=== PATIENT | female | born 1960 | race Caucasian/White ===

== ENCOUNTER 2019-04-06 17:33 | Inpatient (IN) | payer MEDICARE, OTHER ==
[~2019-04-06] VITALS: Ht 160 cm; Wt 74.3 kg
[~2019-04-06 17:33] MED LIST: ACEBUTCAFT PO; ALPR.5 PO; AMOX500 PO; BUDE32NIS; BUPR100ER PO; BUPR150ER PO; BUPR150T2; BUPR150T2 PO; BUSP15 PO; CETI5 PO; CHOLECALCIFEROL; CIME400 PO; CITA20 PO; CLON1; CRUTCH4 USE; CYCL10 PO; DIAZ10 PO; DIAZ5; DIAZ5 PO; DULO60 PO; ESCI20; ESCI20 PO; ESOM20; ESOM20 PO; FLUOXETINE; FLUT44OIA IH; GABA300 PO; HYDACE5 PO; HYDACE7.5 PO; HYDCHL25 PO; LEVSOD25 PO; LOSA50 PO; MEDICAL MARIJUANA; METO10; METO10 PO; METO50ER PO; MOMENI; MULVITMINE; MULVITMINE PO; OLANZAPINE; OMEP20ER; OMEP20ER PO; OMEPRAZOLE MAGN20 MG PO; ONDA4ODT MM; OXYACE5T PO; PANT40 PO; PARO20 PO; PENVK500 PO; POLY17UD PO; POTA10T PO; PRAM.125; PREN-16 PO; PRENATAL PLUS; PROACE100 PO; PROM25 PO; PROM25S PR; QVAR REDIHALE10.6 G1 PO; RANI150 PO; RXHYDACE PO; RXOXYACE PO; RXPROACE PO; RXPROM25 PO; RXPROM25S PR; RXTRAM50 PO; SERT100 PO; SUCR1 PO; SUMA25 PO; TOPI100; TOPI100 PO; TRAZ100; TRAZ100 PO; TRAZ150T57 PO; TRAZ50 PO; VENL75ER; ZIPR40
[2019-04-06] MEDS ORDERED: Loxapine5 MG PO (17:42)
[2019-04-06] MEDS ORDERED: Carisoprodol350 MG PO (18:21)
[2019-04-06 18:43] LABS: BASOPHILS ABSOLUTE AUTO 0.05 K/mm3 (0.00-0.23); BASOPHILS PERCENT AUTO 0 % (0-2); EOSINOPHILS ABSOLUTE AUTO 0.26 K/mm3 (0.00-0.68); EOSINOPHILS PERCENT AUTO 2 % (0-6); Hematocrit 46.9 % (33.0-51.0); IMMATURE GRAN ABSOLUTE AUTO 0.06 K/mm3 (0.00-0.10); IMMATURE GRAN PERCENT AUTO 0 % (0-1); LYMPHOCYTES PERCENT AUTO 39 % (21-46); MONOCYTES ABSOLUTE AUTO 0.77 K/mm3 (0.16-1.47); MONOCYTES PERCENT AUTO 6 % (4-13); Mean Corpuscular HGB 29.1 pg (26.0-34.0); Mean Corpuscular Volume 91 fL (80-100); Mean Platelet Volume 10.4 fL (9.1-12.4); NEUTROPHILS ABSOLUTE AUTO 7.22 K/mm3 (1.96-9.15); NEUTROPHILS PERCENT AUTO 53 % (41-73); Platelet Count 464 K/mm3 (150-400); RDW Coefficient Variation 13.4 % (11.7-14.2); RDW Standard Deviation 45.6 fL (35.1-46.3); Red Blood Cell Count 5.16 M/mm3 (3.80-5.20); White Blood Cell Count 13.76 K/mm3 (4.00-11.30)
[2019-04-06 18:52] LABS: Alanine Aminotransfer (ALT/SGP 26 U/L (12-78); Albumin, Blood 3.6 g/dL (3.4-5.0); Albumin/Globulin Ratio 0.9 (0.8-1.8); Alk Phos 95 U/L (50-136); Anion Gap 8 mmol/L (6-16); Aspartate Aminotrans (AST/SGOT 23 U/L (12-37); Bilirubin, Total 0.4 mg/dL (0.1-1.0); Blood Urea Nitrogen 11 mg/dL (8-24); Bun/Creatinine Ratio 13.5 (12.0-20.0); CO2, Blood 25 mmol/L (21-32); Calcium, Blood 9.1 mg/dL (8.5-10.1); Chloride, Blood 107 mmol/L (98-108); Creatinine, Blood 0.82 mg/dL (0.40-1.00); Ethanol (Alcohol), Blood, Med <3 mg/dL; Globulin, Blood 4.2 g/dL (2.2-4.0); Glomerular Filtration Rate >60 (60-); Glucose, Blood 97 mg/dL (70-99); Potassium, Blood 4.5 mmol/L (3.5-5.5); Sodium, Blood 140 mmol/L (136-145); Total Protein, Blood 7.8 g/dL (6.4-8.2)
[2019-04-06 18:55] LABS: Source, Urine Catheter
[2019-04-06 18:57] LABS: International Normalized Ratio 0.93; Prothrombin Time Results 9.3 Sec (9.7-11.5)
[2019-04-06 18:58] LABS: Bilirubin, Urine Neg (Neg); Blood, Urine Neg (Neg); Glucose Qualitative, Urine Neg (Neg); Ketones, Urine Neg (Neg); Leukocyte Esterase, Urine 1+ (Neg); Nitrite, Urine Pos (Neg); Protein, Urine Neg (Neg); Urobilinogen, Urine NORM (Normal)
[2019-04-06 19:02] LABS: Appearance, Urine Clear (Clear); Color, Urine Yellow (P-Yellow)
[2019-04-06 19:04] LABS: U Amphetamine Screen Not Detected; U Barbituate Screen Not Detected; U Benzodiazapine Screen DETECTED; U Buprenorphine Screen Not Detected; U Cannabinoids Screen DETECTED; U Cocaine Screen Not Detected; U Methadone Screen Not Detected; U Methamphetamine Screen Not Detected; U Opiates Screen DETECTED; U Oxycodone Screen Not Detected; U Phencyclidine Screen Not Detected; U Propoxyphene Screen Not Detected
[2019-04-06 19:05] LABS: Bacteria Many /hpf; Red Blood Cells, Urine 0-2 /hpf (0-2); Squamous Epithelial Cells Few /hpf (Few)
[2019-04-06 21:13] LABS: PCO2 Arterial 44.1 mmHg (35-45); pH Blood Arterial 7.39 (7.35-7.45)
--- NOTE | 2019-04-06 21:21 | NUR ---
ASSUMING CARE OF PT. PT REPORT RECEIVED VIA TELEPHONE WITH OFFGOING ED NURSE, JOHNNY MOORE. WAITING FOR PT TRANSFER FROM ED TO ICU AT THIS TIME.
--- NOTE | 2019-04-06 21:39 | NUR ---
TERESA TURNER CALLED ICU AT THIS TIME. JOHNNY PROVIDED PT UPDATE. PER JOHNNY, POISON CONTROL RECOMMENDED CONT TELE MONITORING, SEIZURE PRECAUTIONS, AND SEROTONIN SYNDROME. TERESA TURNER PLANNING TO TRANSFER PT TO CT FOR HEAD CT PRIOR TO TRANSFERRING PT TO ICU. APPLYING SEIZURE PLANS TO BED AT THIS TIME FOR SEIZURE PRECAUTIONS. WAITING FOR PT TRANSFER TO ICU AT THIS TIME.
--- NOTE | 2019-04-06 21:50 | NUR ---
PT TRANSFERRED FROM ED TO ICU AT THIS TIME.
--- NOTE | 2019-04-06 22:00 | NUR ---
ASSESSMENT / DR. CARD PT RESPONDS TO PAINFUL STIMULI (FACIAL GRIMACING TO PAIN), NORMAL FLEXION TO PAIN, NO SOUNDS/MOANING, NO GAG WITH SUCTIONING, NO COUGHING, NO NODDING HEAD Y/N TO QUESTIONS, NOT FOLLOWING COMMANDS, NO OPENING OF EYES. ROMAZICON ADMINISTERED PER PHYSICIAN'S ORDER. PT CONT TO RESPOND TO PAINFUL STIMULI (FACIAL GRIMACINTG TO PAIN), NORMAL FLEXION TO PAIN, NO SOUNDS/MOANING, NO GAG WITH SUCTIONINOG, NO COUGHING, NO NODDING HEAD Y/N TO QUESTIONS, NOT FOLLOW COMMANDS. HOWEVER, PT OPENED EYES SPONT AND TREMORS NOTED. RICKY SENSATION. PT SAWYER. MINIMAL MOVEMENT NOTED. GENEARLIZED WEAKNESS. SLUGGISH PUPIL RESPONSES. PUPIL 7 MM. NO S/SX OF PAIN/DISCOMFORT NOTED. LUNGS COARSE, LOWER LOBES DIMINIHSED. SHALLOW BREATHING. BIPAP 12/5, FIO2 30%. RR 20'S.OXY SAT >90%. NASAL TRUMPET R NARE. NO COUGHING NOTED. AFEBRILE. ST. HR 110'S. BP STABLE - SEE VS FS. STRONG PULSES. WARM, PINK SKIN. NO EDEMA NOTED. INCREASED RR, HR, AND BP NOTED AFTER ADMINISTERING ROMAZICON. ACTIVE BT X4 QUADRANTS. ABD SOFT, NO FACIAL GRIMACING WITH PALPATION, MILD DIST. NO BM. FLATUS. NPO D/T DECREASED LOC. F/C: CLEAR, YELLOW URINE. PIV X2. NS AT 75 ML/HR. DR. CARD AT BEDSIDE AT THIS TIME. DR. CARD ORDERED ROXI CONSULT, SEIZURE PREACUATIONS, AND HYDRALAZINE PRN FOR SBP 180 AND GREATER. FACESHEET SENT TO ED FOR DR. DIANE'S CONSULT. SEIZURE PADS IN PLACE. DR. CARD AWARE THAT TERESA TURNER NOTIFIED POISON CONTROL OF OD. PT'S HX OBTAINED FROM SIGNIFICANT OTHER OF 13 YEARS (WILL). WILL UNABLE TO PROVIDE PT INFORMATION ABOUT HOME MEDICATION LIST AND ALLERGY LIST.
--- NOTE | 2019-04-06 23:50 | NUR ---
INTUBATION / DR. CARD / PT CARE PT UNRESPONSIVE, DOES NOT RESPOND TO PAINFUL STIMULI, NO SOUNDS/MOANING, NO GAG WITH SUCTIONIONG, NO COUGHING, NO OPENING EYES. NASAL TRUMPET TO R NARES REMAINS IN PLACE. BIPAP REMAINS ON. BIPAP SETTINGS 12/5, FIO2 50%. INCREASED FIO2 TO MAINTAIN SPO2 90% AND GREATER. RT ROLAN NOTIFIED OF INCREASING FIO2 REQUIREMENTS AT 2203. RT ROLAN AT BEDSIDE TO DEEP SUCTION PT AT 2206. RT ROLAN INCREASED FIO2 TO 100%. DR. CARD CALLED AT 2209. UPDATED DR. CARD OF PT'S STATUS. DR. CARD INSTRUCTED TO PREP FOR INTUBATION. DR. CARD, ROLAN RT, MONSERRAT RT, COURTNEY RN, GAURAV RN, AND MONSERRAT RN AT BEDSIDE FOR INTUBATION. PT INTUBATED AT 2323 WITH 7.5 ETT. ETOMIDATE 10 MG ADMINSITERED AT 2323. ETT PULLED OUT AT 2324 D/T ETT IN STOMACH. SUCCINYLCHOLINE 200 MG ADMINISTERED AT 2330. VERSED 2 MG ADMINISTERED AT 2332. PT INTUABTED AT 2334 WITH 7.0 ETT, 24 LIP. VENT SETTINGS: AC 16, TV 400, PEEP 5, FIO2 100%. CLARIFYING PLANT OPERATOR AT BEDSIDE. OG INSERTED BY MONSERRAT, RN AT 2335. CHEST XRAY COMPLETED AT 2337. DR. CARD ORDERED VAP PROTOCOL, PROPOFOL (WILL TITRATE PROPOFOL DRIP TO EFFECT), PROTONIX SCHEDULED, AND CONSULT FOR DR. MCKINLEY. PROPOFOL REMAINS ON STANDBY D/T PT REMAINS UNRESPONSIVE. CALLED DR. CARD AT 2343 TO VERIFY PLACEMENT OF ETT. DR. CARD CALLED ICU BACK AT 2346 AND INSTRUCTED TO PULL ETT TO 22 LIP. MONSERRAT RT AND ROLAN RT PULED ETT TO 22 LIP. PT IN BILAT WRIST RESTRAINTS TO PROTECT VITAL LINES/CORDS/TUBES AND TO PROTECT FROM SELF-EXTUBATION.
--- NOTE | 2019-04-07 02:10 | NUR ---
POISON CONTROL POISON CONTROL CALLED AT THIS TIME. UPDATED POISON CONTROL REGARDING PT'S STATUS AND LABS. POISON CONTROL RECOMMNEDED AM SALICYLATES, TYLENOL, MAG, PHOS, AND EKG. AM LABS AND EKG ORDERED. NO ADDITIONAL RECOMMENDATIONS AT THIS TIME.
[2019-04-07] MEDS ORDERED: Loxapine50 MG PO (02:42)
[2019-04-07] MEDS ORDERED: ONDA8 PO (02:45)
[2019-04-07] MEDS ORDERED: BUSP15 PO (02:47)
[2019-04-07] MEDS ORDERED: Loxapine5 MG PO (02:51)
[2019-04-07] MEDS ORDERED: Budeprion Xl300 MG PO (02:54)
[2019-04-07] MEDS ORDERED: IBUP800 PO (02:56)
[2019-04-07 03:42] LABS: Hematocrit 44.9 % (33.0-51.0); Hemoglobin 14.6 g/dL (11.5-16.0); Mean Corpuscular HGB 29.4 pg (26.0-34.0); Mean Corpuscular HGB Conc 32.5 g/dL (31.5-36.5); Mean Corpuscular Volume 91 fL (80-100); Mean Platelet Volume 9.9 fL (9.1-12.4); Platelet Count 412 K/mm3 (150-400); RDW Coefficient Variation 13.7 % (11.7-14.2); RDW Standard Deviation 46.1 fL (35.1-46.3); Red Blood Cell Count 4.96 M/mm3 (3.80-5.20); White Blood Cell Count 19.07 K/mm3 (4.00-11.30)
[2019-04-07 04:00] LABS: Alanine Aminotransfer (ALT/SGP 21 U/L (12-78); Albumin, Blood 3.4 g/dL (3.4-5.0); Albumin/Globulin Ratio 0.9 (0.8-1.8); Alk Phos 89 U/L (50-136); Anion Gap 8 mmol/L (6-16); Aspartate Aminotrans (AST/SGOT 14 U/L (12-37); Bilirubin, Total 0.2 mg/dL (0.1-1.0); Blood Urea Nitrogen 9 mg/dL (8-24); Bun/Creatinine Ratio 12.6 (12.0-20.0); CO2, Blood 25 mmol/L (21-32); Calcium, Blood 8.8 mg/dL (8.5-10.1); Chloride, Blood 109 mmol/L (98-108); Creatinine, Blood 0.72 mg/dL (0.40-1.00); Globulin, Blood 3.8 g/dL (2.2-4.0); Glomerular Filtration Rate >60 (60-); Glucose, Blood 133 mg/dL (70-99); Phosphorus, Blood 3.5 mg/dL (2.5-4.9); Potassium, Blood 3.6 mmol/L (3.5-5.5); Salicylate <1.7 mg/dL (2.8-20.0); Sodium, Blood 142 mmol/L (136-145); Total Protein, Blood 7.2 g/dL (6.4-8.2)
[2019-04-07 04:06] LABS: Acetaminophen, Random <2.0 ug/mL (10.0-30.0)
--- NOTE | 2019-04-07 04:15 | NUR ---
POISON CONTROL CALLED POISON CONTROL AT THIS TIME. INFORMED POISON CONTROL OF AM LABS AND EKG. POISON CONTROL RECOMMENDED TO ADMINISTER MAGNESIUM AND POTASSIUM. FURTHERMORE, POISON CONTROL RECOMMENDED TO REPEAT CHEMISTRY TODAY. PLANNING TO CALL DR. CARD TO INFORM ABOUT POISON CONTROL'S RECOMMENDATIONS.
--- NOTE | 2019-04-07 04:40 | NUR ---
DR. CARD CALLED DR. CARD AT 0420. DR. CARD CALLED BACK AT THIS TIME. UPDATED DR. AU OF PT'S STATUS, AM LABS, AND POISON CONTROL'S RECOMMENDATIONS. DR. CARD ORDERED KCL 40 MEQ, MAG SULFATE 1 G, AND REPEAT RENAL AND MAG LABS ONCE KCL AND MAG SULFATE HAVE BEEN ADMINISTERED.
--- NOTE | 2019-04-07 05:27 | NUR ---
SHIFT ASSESSMENT NO ACUTE CHANGES NOTED T/O SHIFT. PT RESPONDING TO VERBAL AND PAINFUL STIMULI ESPECIALLY WITH DECREASED SEDATION, GAGGING D/T ETT, OCC COUGHING, OPENS EYES TO SOUND AND PRESSURE, OPENED EYES SPONT WITH DECREASED SEDATION, NOT FOLLOWING COMMANDS, NOT NODDING HEAD Y/N TO QUESTIONS. INCREASED LOC NOTED T/O SHIFT. PROPOFOL AT 30 MCG/KG/MIN - CONT TO TITRATE TO EFFECT. NO TREMORS. RICKY SENSATION. PT SAWYER. INCREASED MOVEMENT NOTED T/O SHIFT. GENEARLIZE WEAKNESS. PT OCC PULLING ON BILAT WRIST REATRSINTS TOWWARDS ETT. PT REMAINS IN BILAT WRIST RESTRAINTS TO PROTECT VITAL LINES/CORDS/TUBES. SLUGGISH PUPIL RESPONSES. SLOWLY TRACKING WITH EYES. NO S/SX OF PAIN/DISCOMFORT NOTED. SEIZURE PANS IN PLACE. LUNGS COARSE, LOWER LOBES DIMINISHED. SHALLOW BREATHING. VENT SETTINGS: AC 16, TV 400, PEEP 5, FIO2 30%. RR 12 TO 20 T/O SHIFT. CONT TO TITRATE FIO2 TO MAINTAIN SPO2 90% AND GREATER. PT DESAT WITH TURNS. NASAL TRUMPET REMOVED DURING INTUBATION. OCC PRODUCTIVE COUGH. SX VIA ETT: SMALL TO MOD AMOUNTS OF THICK BLOODY SECRETIONS. SPUTUM SAMPLE SENT. AFEBRILE. ST. HR 100'S TO 110'S. BP STABLE AT THIS TIME. STRONG PULSES. WARM, PINK, DIAPHORETIC SKIN. NO EDEMA. ACTIVE BT X4 QUADRANTS. ABD SOFT, NO FACIAL GRIMACING WITH PALPATION, MILD DIST. NO BM. FLATUS. OG TUBE: SMALL AMOUNTS OF THICK BROWN SECRETIONS. F/C: CLEAR, YELLOW URINE. PIV X2. NS AT 75 ML/HR. PT'S SIGNIFICANT OTHER REMAINS AT BEDSIDE. WILL CONT TO MONITOR PT AND WILL PROVIDE BEDSIDE REPORT TO ONCOMING NURSE THIS AM.
--- NOTE | 2019-04-07 08:00 | NUR ---
ASSUMED CARE: REPORT RECEIVED FROM COURTNEY Sanz RN. ASSUMED CARE OF THIS PT AT APPROX 0700. ON ASSESSMENT, THE PT IS SEDATED/INTUBATED. VENT SETTINGS: AC 16, TV 400, PEEP 5 & FIO2 30%. PROPOFOL TITRATION DOC IN FLOWSHEET FOR SEDATION. PT EYES OPEN TO VERBAL STIMULUS & FOLLOWING SIMPLE COMMANDS. LS ARE COARSE T/O, SUCTIONING LARGE AMNTS OF THICK BROWN SPUTUM FROM ETT. MONITOR SHOWS ST, HR 110s, BP STABLE. BT x4 HYPOACTIVE, OGT TO LIS. [place] PATENT/DRAINING CLEAR YELLOW URINE. SKIN OVERALL CDI. Q2H TURNS. WILL CONTINUE TO MONITOR & UPDATE NEEDED.
--- NOTE | 2019-04-07 08:15 | NUR ---
DR. MCKINLEY: PROVIDER AT BEDSIDE TO SEE PT. ORDERS FOR NEW CXR HAVE BEEN PLACED. PLAN IS FOR POSSIBLE EXTUBATION THIS AFTERNOON PT's MENTATION CLEARS MORE. WILL PERFORM SEDATION VACATION PER PROVIDER REQUEST AT APPROX 1400 TO DETERMINE IF PT IS SUITABLE FOR EXTUBATION.
[2019-04-07 12:15] LABS: Albumin, Blood 3.2 g/dL (3.4-5.0); Anion Gap 5 mmol/L (6-16); Blood Urea Nitrogen 7 mg/dL (8-24); Bun/Creatinine Ratio 10.9 (12.0-20.0); CO2, Blood 26 mmol/L (21-32); Calcium, Blood 8.7 mg/dL (8.5-10.1); Chloride, Blood 110 mmol/L (98-108); Creatinine, Blood 0.65 mg/dL (0.40-1.00); Glomerular Filtration Rate >60 (60-); Glucose, Blood 119 mg/dL (70-99); Magnesium, Blood 2.3 mg/dL (1.6-2.4); Phosphorus, Blood 2.7 mg/dL (2.5-4.9); Sodium, Blood 141 mmol/L (136-145)
--- NOTE | 2019-04-07 15:18 | NUR ---
SEDATION VACATION / SBT / CUFF LEAK TEST: PER DR. MCKINLEY, SEDATION VACATION & SPONTANEOUS BREATHING TRIAL TO BE PERFORMED THIS AFTERNOON. SEDATION TITRATION BEGAN AT 1400, SEE FLOWSHEET. PT AWAKE & FOLLOWING COMMANDS W/O DIFFICULTY. SEDATION PLACED ON STANDBY AT APPROX 1420. VENT SETTINGS CHANGED TO SPONTANEOUS W/ PS 5/5 AT 1425. PT TOLERATING THIS WELL W/ RR 16-24 & TV > 400. CUFF LEAK TEST PERFORMED AT 1445, THERE IS NO AUDIBLE GURGLING W/ CUFF COMPLETELY DEFLATED. DR MCKINLEY AT BEDSIDE TO LISTEN. CUFF IS REINFLATED & IT IS DECIDED THAT THE PT IS TO REMAIN INTUBATED. SEDATION RESUMED AT 1445, FENTANYL ORDERED FOR PAIN PRN. DECADRON ORDERED FOR AIRWAY INFLAMMATION. FAMILY & PT HAVE BEEN EDUCATED ON THIS INFORMATION. WILL CONTINUE TO MONITOR & UPDATE NEEDED.
--- NOTE | 2019-04-07 18:39 | NUR ---
SHIFT SUMMARY: NO ACUTE CHANGES SINCE PRIOR UPDATES. PT REMAINS SEDATED/INTUBATED. VENT SETTINGS AC 16, TV 400, PEEP 5 & FIO2 30%. DESATS NOTED TO MID 80s WHEN PT COUGHING/NEEDS SUCTIONED. LS ARE IMPROVED SINCE THIS AM, MORE CLEAR T/O, DIM IN BASES. SMALL AMNT OF THICK BROWN SPUTUM CONTINUES TO BE SUCTIONED THROUGH ETT. MONITOR SHOWS ST, HR TRENDING DOWN OVERALL, NOW 100s. BP STABLE. BT HYPOACTIVE x4, ABD SOFT, NO GRIMACE TO PALPATION. OGT CONTINUES TO LIS, 75 ML OUTPUT THIS SHIFT. [place] PATENT/DRAINING DARK YELLOW URINE. PT IS MORE DIAPHORETIC THIS EVENING, VSS & SHE CONTINUES TO AWAKEN EASILY TO VERBAL STIMULI. AFEBRILE, TEMP IN ROOM HAS BEEN LOWERED FOR COMFORT. WILL CONTINUE TO MONITOR & REPORT OFF TO ONCOMING RN.
--- NOTE | 2019-04-07 19:15 | NUR ---
ASSUMED CARE OF PT, BEDSIDE REPORT RECEIVED. PT IS SEDATED AND INTUBATED AT THIS TIME, PROPOFOL GTT CHECKED, NOTED AT 60 MCG/MG/MIN. PT IS NOTED TO OPEN EYES TO VERBAL STIMULI, MAKES EYE CONTACT, ANSWERS YES/NO QUESTIONS, SIGNIFICANT OTHER, WILL, AT BEDSIDE, PT IS NOTED WITH GENERALIZED DIAPHORESES, BEADS OF SWEAT ON FACE/FOREHEAD, SIGNIFICANT OTHER STATES "SHE ALWAYS SWEATS." ETT 7.0 NOTED AT 22 CM AT LIP, 21 CM AT TEETH, VENT AC 16, TV 400, PEEP 5.0, FIO2 30%, LUNG CLEAR BILAT UPPER, CLEAR/DIM MID TO BASES BILAT, PT IS MAINTAINING SATS AT 95% AT THIS TIME, RESP RATE 16, MOST BREATHS ARE NOTED "CONTROLLED" WHEN PT IS UNDISTURBED, THICK BROWN SPUTUM IS NOTED IN ET SUCTION TUBING. HRR, SINUS TACH ON MONITOR RATE BETWEEN 100 AND 110, PULSES FULL X 4 EXTREMITIES, PRESSURE MAINTAINING, SKIN PINK, WARM, DRY. OG NOTED TO LIS, SECRETIONS CLEAR BROWN, HYPOACTIVE BOWEL TONES ARE NOTED, ABD SOFT, NO GRIMACING/GUARDING IS NOTED WITH PALPATION. [place] CATH REMAINS IN PLACE DRAINING CLEAR DARK YELLOW URINE TO GRAVITY, 60 ML IN UROMETER AT THIS TIME, WILL MONITOR.
--- NOTE | 2019-04-08 06:27 | NUR ---
PT RESTS QUIETLY THROUGHOUT SHIFT, LUNG SOUNDS INTERMITTENTLY COARSE THROUGHOUT, SPUTUM PRODUCTION CONTINUES MODERATE AMOUNTS OF THICK, PALE GREEN SPUTUM WITH ET SUCTIONING, PT IS NOTED TO HAVE SATS DECREASING TO MID TO UPPER 80S AT TIMES THAT SUCTIONING IS REQUIRED HOWEVER PEAK PRESSURES REMAIN LOW TO MID 20S, SUCTIONING ATTEMPTS ARE PRODUCTIVE AT THESE TIMES AND PT'S SATS DO IMPROVE BACK TO LOW TO MID 90S WITHOUT OTHER VENT CHANGES. AFTER SPONTANEOUS BREATHING TRIAL THIS AM, SHE IS NOTED TO HAVE DECREASING SATS TO LOW 80S AND SUCTIONING IS PRODUCTIVE OF THICK SPUTUM, PER RT PT HAD LARGE AMOUNT OF SPUTUM PRODUCTION WHEN SHE WAS AWAKE AND ABLE TO ASSIST WITH COUGH, RT RETURNED TO BEDSIDE, PT SUCTIONED AND FIO2 INCREASED TO 60%. HR IMPROVED TO 90S, PRESSURE MAINTAINING. OG REMAINS IN PLACE TO LIS, SCANT DRAINAGE THIS SHIFT. [place] REMAINS IN PLACE JUST OVER 300 ML OUTPUT THIS SHIFT, PT DIAPHORESIS IMPROVED AFTER BEDBATH AT HS, 2 KG WEIGHT LOSS IS NOTED.
--- NOTE | 2019-04-08 07:48 | NUR ---
ASSUMED CARE: REPORT RECEIVED FROM YANET Kirk RN. ASSUMED CARE OF THIS PT AT APPROX 0700. ON ASSESSMENT, THE PT APPEARS COMFORTABLE. SHE IS SHOWING NO S/SX PAIN OR DISCOMFORT AT THIS TIME. REMAINS SEDATED/INTUBATED. VENT SETTINGS: AC 16, TV 400, PEEP 5 & FIO2 50%. MOD AMNTS OF THICK YELLOW/HERZOG SPUTUM CONTINUE BEING SUCTIONED FROM ETT. LS ARE CLEAR, DIM IN BASES. MONITOR SHOWS SR W/ HR 80s. BP STABLE. OGT TO LIS, MINIMAL OUTPUT LAST SHIFT. [place] DRAINING DARK YELLOW, CONCENTRATED URINE THAT HAS A STRONG ODOR. WILL CONTINUE TO MONITOR & UPDATE NEEDED.
--- NOTE | 2019-04-08 07:55 | NUR ---
DR. GALO: PROVIDER HAS ROUNDED, NO NEW ORDERS/CHANGES AT THIS TIME.
--- NOTE | 2019-04-08 09:22 | NUR ---
DR. MCKINLEY: PROVIDER ROUNDING, STS HE WOULD LIKE SEDATION TITRATED OFF W/ ANTICIPATION OF EXTUBATION THIS AM. SEE FLOWSHEET FOR TITRATION. TOMY D, RT, NOTIFIED.
--- NOTE | 2019-04-08 10:15 | NUR ---
SEDATION VACATION / EXTUBATION: SEDATION VACATION BEGAN AT APPROX 0920 W/ PLANS TO EXTUBATE. PT ALERT, ANSWERING YES/NO QUESTIONS APPROPRIATELY W/ HEAD NODS. SHE IS FAIRLY ANXIOUS BUT RESPONDS WELL TO REASSURANCE & REDIRECTION. PER DR MCKINLEY, SBT IS NOT NECESSARY PT IS FULLY AWAKE & PASSED SBT W/O DIFFICULTY THIS AM. CUFF LEAK TEST PERFORMED & PT NOW HAS A CUFF LEAK. EXTUBATION AT 0945, PT PLACED ON 3L NC & IS TOLERATING WELL W/ O2 SATS > 92%. SHE HAS A STRONG COUGH & IS EXPECTORATING SPUTUM W/O DIFFICULTY. WILL CONTINUE TO MONITOR & UDPATE NEEDED.
--- NOTE | 2019-04-08 11:12 | NUR ---
STARTED PT WITH ICE CHIPS AND THEN GRADUALLY WITH SIPS OF WATER. TOLERATED ICE CHIPS AND SIPS OF WATER WELL.
--- NOTE | 2019-04-08 12:29 | NUR ---
THIS NURSE DID THE SUICIDE SEVERITY ASSESSMENT. PT TRIED TO ANSWER QUESTIONS BUT SIGNIFICANT OTHER KEEPS ON ANSWERING THE QUESTIONS FOR HER THAT THIS NURSE HAD ASKED HIM TO LET PT ANSWER THE QUESTIONS. HE HAS STATED PT HAD TAKEN THE MEDICATIONS BECAUSE HIM AND THE PATIENT HAD AN "ARGUMENT" AND TOLD PT THAT "IF YOU WANT ME TO LEAVE, I WILL LEAVE."
--- NOTE | 2019-04-08 16:41 | NUR ---
Per admit trigger, I met with Madhavi to offer information regarding Advanced Directives. I met with both Madhavi and her SO, Steven. Steven tells me he has advanced cancer, and he feels guilty because of the stress this has caused Madhavi. Steven states that "its not going well" with his cancer sotomayor. Madhavi was frequently tearful. I provided gentle career and guidance counselor and offered prayer to Madhavi. She would like Steven to be her MPOA. Steven would like Madhavi to be his MPOA. AD forms completed. I will remain available.
--- NOTE | 2019-04-08 19:05 | NUR ---
SHIFT SUMMARY: NO ACUTE CHANGES SINCE PRIOR UPDATES. PT REMAINS CONFUSED INTERMITTENTLY & IS HAVING SOME HALLUCINATIONS WELL. SHE IS EASILY REDIRECTABLE & RESPONDS TO REASSURANCE WELL. LS REMAINS CLEAR, DIM IN BASES. PT ON RA W/ O2 SATS > 92%. SHE HAS A STRONG COUGH & IS EXPECTORATING SPUTUM W/O DIFFICULTY. MONITOR SHOWS NSR W/ HR 80-100s. HTN IMPROVED SINCE MEDS PER EMAR. PT IS EATING W/O DIFFICULTY & HAS NO C/O NAUSEA OR DISCOMFORT. [place] REMAINS IN PLACE W/ PLANS TO BE REMOVED JORI. WILL CONTINUE TO MONITOR & REPORT OFF TO ONCOMING RN.
--- NOTE | 2019-04-08 19:15 | NUR ---
ASSUMED CARE OF PT, BEDSIDE REPORT RECEIVED. CIVIL RIGHTS BEING READ TO PT BY DAY SHIFT FEATHER SHAPER. PT BECOMES TEARFUL RIGHTS ARE READ, EXPLAINED THAT CIVIL RIGHTS ARE PART OF ADMISSION FOR 2 MD HOLD. EXPLAINED REASON FOR 2 MD HOLD AT THIS TIME. DISCUSSED BOUNDARIES ASSOCIATED WITH 2 MD HOLD. EXPLAINED ALL PERSONAL BELONGINGS ARE TO REMAIN OUTSIDE OF ROOM, EXPLAINED PHONE REMOVAL FROM ROOM WELL EQUIPMENT REMOVAL FOR SAFETY. DISCUSSED MONITORING VIA IN ROOM CAMERA. PT REMAINS TEARFUL BUT VERBALIZES UNDERSTANDING THAT ALL PRECAUTIONS ARE FOR HER SAFETY. SHE STATES THAT SHE WAS NOT TRYING TO HURT HERSELF, SHE STATES THAT SHE WAS NOT TRYING TO KILL HERSELF. "I JUST TOOK MY BEDTIME MEDS 2 OR 3 TIMES BECAUSE I KEPT FORGETTING IF I HAD TAKEN THEM" STATES THAT SHE NOTIFIED SIG OTHER " SOON I REALIZED WHAT I DID" SHE IS ALERT AND ORIENTED X 3 AT THIS TIME. LUNGS ARE INITIALLY COARSE THROUGHOUT HOWEVER PT HAS STRONG PRODUCTIVE COUGH DURING AUSCULTATION AND LUNG SOUNDS BECOME CLEAR THROUGHOUT, SPUTUM IS THICK AND PALE GREEN, SATS ARE MAINTAINING HIGH 90S ON ROOM AIR, NO INCREASED WORK OF BREATHING IS NOTED, PT DENIES SOB/DYSPNEA, STATES THAT SHE HAS NOTICED FEELING THAT SHE HAS A WHEEZE ON OCCASION. HRR, SINUS ON MONITOR, RATE 80-90S, HAS BEEN HYPERTENSIVE TODAY WILL MONITOR. ABD SOFT, NORMOACTIVE BOWEL TONES, NO GRIMACING OR GUARDING. [place] CATH REMAINS IN PLACE, URINE OUTPUT IMPROVED WILL MONITOR.
--- NOTE | 2019-04-08 19:47 | NUR ---
1939-EXPLAINED TO PT THAT SHE WAS PLACED BY DR. MCKINLEY ON A 2 MD HOLD. WHILE TRYING TO EXPLAIN TO PATIENT WHAT 2 MD HOLD IS, PT'S SIGNIFICANT OTHER, WHO CLAIMED TO BE PT'S , KEEP INTERRUPTING THIS NURSE WHILE EXPLAINING TO THE PATIENT. HE KEEPS ON SAYING THAT " I WILL CALL MY APPLICATION ASSISTANT TOMORROW." THIS NURSE EXPLAINED TO HIM THAT THE PATIENT HAS RIGHTS FOR AN ELEMENTARY SCHOOL REGISTRAR. SIGNIFICANT OTHER CONTINUED TO BE ARGUMENTATIVE. EXPLAINED TO HIM TO ALLOW THIS NURSE TO CONTINUE TO EXPLAIN TO PT AND READ TO PT'S HER CIVIL RIGHTS. EXPLAINED TO PT THAT HAVING A VISITOR IN THE ROOM IS A PRIVILEGE. THIS MADE THE SIGNIFICANT OTHER UPSET MORE. STATED THAT THIS NURSE WAS "STRESSING PATIENT AND INTERRUPTING HER WHILE SHE'S EATING" AND THAT HE SAW THIS NURSE OUTSIDE OF PT'S ROOM "WAVING PAPER TO PEOPLE AND TELLING THEM WHAT TO DO." THIS NURSE TALKED TO PATIENT AND WAS ABLE TO MAKE PT CALM. THE SIGNIFICANT OTHER WAS INFORMED THAT IF HE INTERFERES WITH THE CARE OF THE PATIENT THAT HE WILL BE ASKED TO STEP OUT AND WILL BE ASSISTED WITH SECURITY IF NOT COOPERATING. INFORMED YANDEL SMITH RN & CARLOS WITH SECURITY REGARDING THIS CONVERSATION.
--- NOTE | 2019-04-09 06:32 | NUR ---
PT RESTS QUIETLY THROUGHOUT SHIFT, CONTINUES TO DENY THAT SHE HAD INTENT TO HARM OR KILL HERSELF AND THAT OVERDOSE WAS ACCIDENTAL. SHE CONTINUES TO FREQUENTLY BE TEARFUL AND EXPRESSES CONCERN REGARDING SIGNIFICANT OTHER'S WELL BEING. SATS REMAIN GREATER THAN 95% THROUGHOUT SHIFT ON ROOM AIR, NO INCREASED WORK OF BREATHING HAS BEEN NOTED THIS SHIFT, PT HAS DENIED DYSPNEA THROUGHOUT NOC, LUNGS OCCASIONALLY COARSE HOWEVER CONTINUE TO CLEAR WITH COUGH. HRR, CONTINUES IN SINUS RHYTHM, BP MAINTAINING. ABD REMAINS SOFT NONTENDER TO PALP, ACTIVE BOWEL TONES X4, CONTINUES TO DENY N/V. [place] DC'D, SHE WAS ABLE TO VOID X 1 AND DENIED ANY BURNING, URGENCY, OR DIFFICULTY WITH VOID. WAS UP TO TOILET X 1 WITH STEADY GAIT, DENIED DIZZINESS/VERTIGO WITH TRANSFER, DID STATE THAT SHE FELT A LITTLE "SHAKY" OTHERWISE TOLERTATED WELL.
--- NOTE | 2019-04-09 09:44 | NUR ---
PT AWAKE IN BED, S/O AT BEDSIDE. PT AWAKE, COOPERATIVE AND PLEASANT, ALONG WITH S/O. PT DENIES COMPLAINTS, DENIES S.I., STATES SHE ACCIDENTLY TOOK HOME MEDS SEBVERAL TIMES, STATES SHE SLEEP WALKS. MULTIPLE SCATTERED BRUISES, BOTH COUPLES STATE THAT SHE FALLS A LOT, POSSIBLE D/T MEDS. BOTH PT AND S/O APPEAR TO HAVE AN INTELLECTUAL DISABILITY; SOFT SPOKEN; S/O SUPPORTIVE. DANICA WALL MHNP IN TO SEE PT THIS AM AND RECOMMENDS DROPPING HOLD; DR GALO NOTIFIED. PT OOB TO CHAIR, EATING, DRINKING, TOLERATED WELL.
[2019-04-09] MEDS ORDERED: LEVFLO500 PO (10:55)
--- NOTE | 2019-04-09 11:37 | NUR ---
WRITTEN AND VERBAL INSTRUCTIONS GIVEN WITH CLEAR UNDERSTANDING TO BOTH PT AND PT'S S/O. FOLLOW UP APPOINTMENT MADE W PCP. RX CALLED INTO [facility]. PT WALKED OUT BY S/O IN STABLE CONDITION. DROP ORDER SIGNED BY DR GALO, ORIGINAL SENT TO [facility].
== END 2019-04-09 11:37 | disposition home or self-care (01) | DRG 917 ==
LOC: ER 17:33 → ICUE 17:34 → ER 17:34 → ICUW 17:34 → ICUE 21:33 → ICUW 21:50 → ICUE 21:50 → ICUW 04-07 10:17 → ICUE 04-07 10:17
PROVIDERS: Emergency Medicine; ADMIT Internal Medicine
PROC: 0BH17EZ Insertion of Endotracheal Airway into Trachea, Via Natural or Artificial Opening (ICD-10-PCS; principal; 2019-04-07)
PROC: 5A1945Z Respiratory Ventilation, 24-96 Consecutive Hours (ICD-10-PCS; 2019-04-07)
DX: T65.91XA Toxic effect of unspecified substance, accidental (unintentional), initial encounter (principal); G92 Toxic encephalopathy; N39.0 Urinary tract infection, site not specified; T50.902A Poisoning by unspecified drugs, medicaments and biological substances, intentional self-harm, initial encounter; Y92.9 Unspecified place or not applicable; F31.9 Bipolar disorder, unspecified
CPT/HCPCS: 31500; 31720; 36415; 36600; 51702; 70450; 71045; 80053; 80069; 81001; 82803; 82947; 83735; 84100; 85025; 85027; 85610; 87070; 87077; 87086; 87185; 87186; 87205; 93005; 93010; 94002; 94003; 94660; 96365; 96366; 96372; 96374-59; 96375; 96375-59; 99285-25; C9113; G0378; G0480; J0330; J0360; J1100; J1650; J1956; J2250; J2310; J2704; J3010; J3475; J3480; J7030; J7050; P9612

== ENCOUNTER 2020-08-21 09:45 | Emergency (ER) | payer MEDICARE, OTHER ==
[~2020-08-21] VITALS: Ht 160 cm; Wt 70.3 kg
[~2020-08-21 09:45] MED LIST changes: +Budeprion Xl300 MG PO; +Carisoprodol350 MG PO; +IBUP800 PO; +LEVFLO500 PO; +Loxapine5 MG PO; +Loxapine50 MG PO; +ONDA8 PO
== END 2020-08-21 11:30 | disposition home or self-care (01) ==
LOC: ER 09:45
DX: F31.9 Bipolar disorder, unspecified (principal); F41.9 Anxiety disorder, unspecified; S51.812A Laceration without foreign body of left forearm, initial encounter; Z23 Encounter for immunization; Z79.52 Long term (current) use of systemic steroids; Z79.899 Other long term (current) drug therapy; Z87.891 Personal history of nicotine dependence; X78.9XXA Intentional self-harm by unspecified sharp object, initial encounter
CPT/HCPCS: 90471; 90714; 99284

== ENCOUNTER 2020-11-18 05:45 | Emergency (ER) | payer MEDICARE, OTHER ==
[~2020-11-18] VITALS: Ht 162.6 cm; Wt 68.0 kg
[~2020-11-18 05:45] MED LIST changes: -LOSA50 PO; -OMEPRAZOLE MAGN20 MG PO
[2020-11-18 06:40] LABS: BASOPHILS ABSOLUTE AUTO 0.04 K/mm3 (0.00-0.23); BASOPHILS PERCENT AUTO 0 % (0-2); EOSINOPHILS PERCENT AUTO 1 % (0-6); Hematocrit 42.5 % (33.0-51.0); Hemoglobin 14.3 g/dL (11.5-16.0); IMMATURE GRAN ABSOLUTE AUTO 0.05 K/mm3 (0.00-0.10); IMMATURE GRAN PERCENT AUTO 0 % (0-1); LYMPHOCYTES ABSOLUTE AUTO 3.55 K/mm3 (0.84-5.20); LYMPHOCYTES PERCENT AUTO 29 % (21-46); MONOCYTES ABSOLUTE AUTO 0.72 K/mm3 (0.16-1.47); MONOCYTES PERCENT AUTO 6 % (4-13); Mean Corpuscular HGB 29.8 pg (26.0-34.0); Mean Corpuscular HGB Conc 33.6 g/dL (31.5-36.5); Mean Corpuscular Volume 89 fL (80-100); Mean Platelet Volume 9.2 fL (9.1-12.4); NEUTROPHILS ABSOLUTE AUTO 7.67 K/mm3 (1.96-9.15); NEUTROPHILS PERCENT AUTO 63 % (41-73); Platelet Count 466 K/mm3 (150-400); RDW Coefficient Variation 12.2 % (11.7-14.2); RDW Standard Deviation 39.9 fL (35.1-46.3); White Blood Cell Count 12.13 K/mm3 (4.00-11.30)
[2020-11-18 06:53] LABS: Alanine Aminotransfer (ALT/SGP 20 U/L (12-78); Albumin, Blood 3.8 g/dL (3.4-5.0); Alk Phos 78 U/L (50-136); Anion Gap 11 mmol/L (6-16); Aspartate Aminotrans (AST/SGOT 13 U/L (12-37); Bilirubin, Total 0.3 mg/dL (0.1-1.0); Blood Urea Nitrogen 14 mg/dL (8-24); CO2, Blood 23 mmol/L (21-32); Calcium, Blood 9.5 mg/dL (8.5-10.1); Chloride, Blood 102 mmol/L (98-108); Creatinine, Blood 0.82 mg/dL (0.40-1.00); Glomerular Filtration Rate >60 (60-); Glucose, Blood 157 mg/dL (70-99); Magnesium, Blood 2.4 mg/dL (1.6-2.4); Potassium, Blood 3.7 mmol/L (3.5-5.5); Prolactin 13.8 ng/mL (2.74-19.64); Sodium, Blood 136 mmol/L (136-145); Total Protein, Blood 7.8 g/dL (6.4-8.2)
[2020-11-18] MEDS ORDERED: ZYRTEC10 M2 PO (07:35)
[2020-11-18] MEDS ORDERED: IBUP800 PO (07:36)
[2020-11-18] MEDS ORDERED: ALBU90OI INH (07:36)
[2020-11-18] MEDS ORDERED: RIZATRIPTAN10 MG SL (07:37)
[2020-11-18] MEDS ORDERED: PEPCID40 MG PO (09:29)
[2020-11-18] MEDS ORDERED: ARIPIPRAZOLE10 M1 PO (12:02)
[2020-11-18] MEDS ORDERED: HYDHCL25 PO (12:04)
[2020-11-18] MEDS ORDERED: BUSP10 PO (12:06)
[2020-11-18] MEDS ORDERED: CELEXA40 MG PO (12:06)
== END 2020-11-18 10:06 | disposition home or self-care (01) ==
LOC: ER 05:45
PROVIDERS: Emergency Medicine
DX: R56.9 Unspecified convulsions (principal); R11.0 Nausea; R51.9 Headache, unspecified; Z88.6 Allergy status to analgesic agent; Z88.5 Allergy status to narcotic agent; Z88.1 Allergy status to other antibiotic agents; Z79.899 Other long term (current) drug therapy; Z87.891 Personal history of nicotine dependence
CPT/HCPCS: 70450; 80053; 83605; 83690; 83735; 84146; 85025; 93005; 93010; 96374; 99285-25; A9270

== ENCOUNTER 2020-11-18 10:10 | Observation (INO) | payer MEDICARE, OTHER ==
[~2020-11-18] VITALS: Ht 167.6 cm; Wt 80.0 kg
[~2020-11-18 10:10] MED LIST changes: +ALBU90OI INH; +PEPCID40 MG PO; +RIZATRIPTAN10 MG SL; +ZYRTEC10 M2 PO
[2020-11-18 11:05] LABS: Anion Gap 20 mmol/L (6-16); Blood Urea Nitrogen 14 mg/dL (8-24); CO2, Blood 17 mmol/L (21-32); Calcium, Blood 10.2 mg/dL (8.5-10.1); Chloride, Blood 101 mmol/L (98-108); Creatinine, Blood 0.78 mg/dL (0.40-1.00); Glomerular Filtration Rate >60 (60-); Glucose, Blood 177 mg/dL (70-99); Potassium, Blood 4.3 mmol/L (3.5-5.5); Sodium, Blood 138 mmol/L (136-145)
[2020-11-18 11:41] LABS: Influenza A, PCR Negative (NEGATIVE); Influenza B, PCR Negative (NEGATIVE); Resp Syncytial Virus, PCR Negative (NEGATIVE); SARS-Cov-2 (COVID-19) PCR, MMC Negative (NEGATIVE)
[2020-11-18] MEDS ORDERED: ARIPIPRAZOLE10 M1 PO (12:02)
[2020-11-18] MEDS ORDERED: HYDHCL25 PO (12:04)
[2020-11-18] MEDS ORDERED: BUSP10 PO (12:06)
[2020-11-18] MEDS ORDERED: CELEXA40 MG PO (12:06)
--- NOTE | 2020-11-18 16:29 | NUR ---
PATIENT IS ALERT AND ORIENTED. JUST NOT FEELING WELL AT ALL. SHE HAS BEEN RESTING IN BED SINCE ADMIT TO THE FLOOR; LIKELY SLEEPING AT THIS TIME. HAS BEEN AT BEDSIDE SINCE ADMIT TO THE FLOOR. CALL LIGHT WITHIN REACH.
--- NOTE | 2020-11-18 19:15 | NUR ---
ASSUMED CARE REPORT RECEIVED FROM TERESA HOWELL. PT RESTING IN BED, NO S/S ACUTE DISTRESS NOTED. NO ACUTE NEEDS ASSESSED AT THIS TIME. CALL LIGHT, POSSESSIONS IN REACH, SEIZURE PADS IN PLACE TO UPPER SIDERAILS. BED IN LOW POSITION WITH ALARMS ON. CONTINUE TO MONITOR.
--- NOTE | 2020-11-18 20:00 | NUR ---
THIS RN CALLED TO PT ROOM BY JUAN STEVE CNA. PT FOUND TO HAVE REMOVED IV AND TELEMETRY, BLOOD NOTED ON LINENS, FLOOR, AND ALL OVER PT BODY. ASSISTED PT TO SHOWER. WHILE ASSISTING PT, PT VISIBLY ANXIOUS; PROVIDED REASSURANCE AND THERAPEUTIC COMMUNICATION. WHEN ASKED WHAT WAS BOTHERING PT, PT STATED SHE WAS UNSURE. CONTINUED TO PROVIDE REASSURANCE AND EXPLAIN CARES. PT APPEARED TO CALM. ASSISTED TO CHANGE INTO CLEAN GOWN AND WALK BACK TO BED. RUN LEAD REPLACING TELE LEADS. PT DENIES FURTHER NEEDS AT THIS TIME. CALL LIGHT, POSSESSIONS IN REACH, BED IN LOW POSITION WITH ALARMS ON. CONTINUE TO MONITOR.
[2020-11-19 05:11] LABS: Source, Urine Clean Catch
[2020-11-19 05:12] LABS: Bilirubin, Urine Neg (Neg); Blood, Urine Neg (Neg); Glucose Qualitative, Urine Neg (Neg); Ketones, Urine 4+ (Neg); Leukocyte Esterase, Urine 1+ (Neg); Nitrite, Urine Neg (Neg); Protein, Urine Neg (Neg); Specific Gravity, Urine 1.015 (1.003-1.022); Urobilinogen, Urine NORM (Normal)
[2020-11-19 05:30] LABS: U Amphetamine Screen DETECTED; U Barbituate Screen Not Detected; U Benzodiazapine Screen DETECTED; U Cocaine Screen Not Detected; U Methamphetamine Screen DETECTED
[2020-11-19 05:31] LABS: U Buprenorphine Screen Not Detected; U Cannabinoids Screen DETECTED; U Methadone Screen Not Detected; U Opiates Screen Not Detected; U Oxycodone Screen Not Detected; U Phencyclidine Screen Not Detected; U Propoxyphene Screen Not Detected
[2020-11-19 05:46] LABS: Appearance, Urine Hazy (Clear); Color, Urine Yellow (P-Yellow)
[2020-11-19 05:48] LABS: Bacteria Few /hpf; Red Blood Cells, Urine Not Seen /hpf (0-2); Squamous Epithelial Cells Rare /hpf (Few); White Blood Cells, Urine 0-2 /hpf (0-5)
--- NOTE | 2020-11-19 06:00 | NUR ---
SHIFT SUMMARY PT ASLEEP, NO S/S ACUTE DISTRESS NOTED. VS REVIEWED, HR SLIGHTLY TACHYCARDIC, OTHER VS WNL. NO SEIZURE ACTIVITY NOTED T/O NIGHT, PADS REMAIN IN PLACE TO UPPER SIDERAILS. PT APPEARED TO SLEEP FOR PART OF THE NIGHT. NO ACUTE CHANGES IN CONDITION NOTED. CALLED FOR AN UPDATE, VERBAL CONSENT OBTAINED FROM PT TO SPEAK TO HIM. PT DENIES NEEDS AT THIS TIME. CALL LIGHT, POSSESSIONS IN REACH, BED IN LOW POSITION WITH ALARMS ON. CONTINUE TO MONITOR, REPORT OFF TO DAY RN.
--- NOTE | 2020-11-19 16:53 | NUR ---
DISCHARGE SUMMARY PT LEAVING WITH [facility]. PT ALREADY HAD F/U APPT WITH PCP NEXT WEEK. PAPERWORK REVIEWED. NO NEW MEDS. PIV REMOVED.
== END 2020-11-19 17:04 | disposition home or self-care (01) ==
LOC: ER 10:10 → ERHOLD 10:11 → MEDS 10:11
PROVIDERS: Nurse Practitioner Acute Care; ADMIT Internal Medicine
DX: R56.9 Unspecified convulsions (principal); D72.829 Elevated white blood cell count, unspecified; F31.9 Bipolar disorder, unspecified; M79.7 Fibromyalgia; F44.81 Dissociative identity disorder; Z23 Encounter for immunization; Z88.8 Allergy status to other drugs, medicaments and biological substances; Z20.822 Contact with and (suspected) exposure to COVID-19; Z88.6 Allergy status to analgesic agent; Z88.5 Allergy status to narcotic agent; Z88.2 Allergy status to sulfonamides
CPT/HCPCS: 0241U; 36415; 70450; 70551; 80048; 80053; 81001; 82550; 82947; 83605; 83690; 83735; 84146; 85025; 93005; 93010; 95819; 96361; 96365; 96372; 96374; 96375; 99285-25; A9270; G0008; G0378; G0480; J1650; J1953; J2060; J7120; Q2038

== ENCOUNTER 2021-01-01 15:07 | Inpatient (IN) | payer MEDICARE, OTHER ==
[~2021-01-01] VITALS: Ht 160 cm; Wt 79.3 kg
[~2021-01-01 15:07] MED LIST changes: +ARIPIPRAZOLE10 M1 PO; +BUSP10 PO; +CELEXA40 MG PO; +HYDHCL25 PO
[2021-01-01 15:39] LABS: BASOPHILS PERCENT AUTO 0 % (0-2); EOSINOPHILS PERCENT AUTO 0 % (0-6); Hematocrit 45.2 % (33.0-51.0); Hemoglobin 14.6 g/dL (11.5-16.0); IMMATURE GRAN PERCENT AUTO 1 % (0-1); LYMPHOCYTES ABSOLUTE AUTO 3.59 K/mm3 (0.84-5.20); LYMPHOCYTES PERCENT AUTO 13 % (21-46); MONOCYTES ABSOLUTE AUTO 1.22 K/mm3 (0.16-1.47); MONOCYTES PERCENT AUTO 4 % (4-13); Mean Corpuscular HGB 29.6 pg (26.0-34.0); Mean Corpuscular HGB Conc 32.3 g/dL (31.5-36.5); Mean Corpuscular Volume 92 fL (80-100); Mean Platelet Volume 9.3 fL (9.1-12.4); NEUTROPHILS ABSOLUTE AUTO 22.43 K/mm3 (1.96-9.15); NEUTROPHILS PERCENT AUTO 82 % (41-73); Platelet Count 498 K/mm3 (150-400); RDW Standard Deviation 40.8 fL (35.1-46.3); Red Blood Cell Count 4.93 M/mm3 (3.80-5.20); White Blood Cell Count 27.54 K/mm3 (4.00-11.30)
[2021-01-01 15:43] LABS: Alanine Aminotransfer (ALT/SGP 24 U/L (12-78); Albumin/Globulin Ratio 0.9 (0.8-1.8); Alk Phos 90 U/L (50-136); Anion Gap 21 mmol/L (6-16); Aspartate Aminotrans (AST/SGOT 23 U/L (12-37); Bilirubin, Total 0.2 mg/dL (0.1-1.0); Blood Urea Nitrogen 12 mg/dL (8-24); Bun/Creatinine Ratio 15.3 (12.0-20.0); CO2, Blood 14 mmol/L (21-32); Calcium, Blood 9.1 mg/dL (8.5-10.1); Chloride, Blood 100 mmol/L (98-108); Creatinine, Blood 0.79 mg/dL (0.40-1.00); Globulin, Blood 4.3 g/dL (2.2-4.0); Glomerular Filtration Rate >60 (60-); Glucose, Blood 155 mg/dL (70-99); Potassium, Blood 3.6 mmol/L (3.5-5.5); Sodium, Blood 135 mmol/L (136-145); Total Protein, Blood 8.3 g/dL (6.4-8.2)
[2021-01-01 15:52] LABS: U Amphetamine Screen DETECTED; U Barbituate Screen Not Detected; U Benzodiazapine Screen Not Detected; U Buprenorphine Screen Not Detected; U Cannabinoids Screen DETECTED; U Cocaine Screen Not Detected; U Methadone Screen Not Detected; U Methamphetamine Screen DETECTED; U Opiates Screen Not Detected; U Oxycodone Screen Not Detected; U Phencyclidine Screen Not Detected; U Propoxyphene Screen Not Detected
[2021-01-01] MEDS ORDERED: SEROQUEL50 MG PO (17:01)
[2021-01-01] MEDS ORDERED: METO100ER PO (17:01)
[2021-01-01] MEDS ORDERED: MOBIC15 MG PO (17:02)
[2021-01-01] MEDS ORDERED: LOSARTAN POTAS100 M1 PO (17:04)
[2021-01-01] MEDS ORDERED: BUPROPION XL150 M1 PO (17:04)
[2021-01-01] MEDS ORDERED: OMEPRAZOLE MAGN20 MG PO (17:05)
[2021-01-01] MEDS ORDERED: BUSP10 PO (19:12)
[2021-01-01] MEDS ORDERED: Atarax10 MG PO (19:13)
[2021-01-01] MEDS ORDERED: RIZATRIPTAN10 MG (19:14)
[2021-01-01] MEDS ORDERED: LIDO700A20 (19:14)
[2021-01-01] MEDS ORDERED: ARIP30 PO (19:29)
--- NOTE | 2021-01-01 19:55 | NUR ---
ADMIT RECEIVED FROM ER VIA GURNEY. AWAKE. MOVING ALL EXTREMITIES AND MOVING RESTLESSLY IN BED. NOT FOLLOWING ANY COMMANDS. INTERFERING WITH CARE. MONITOR SHOWS ST, RATE 120s. UNABLE TO GET NIBP AT THIS TIME D/T AGITATION. APOLONIA, 4MM. RA SATS STABLE. RESPIRATIONS EVEN AND UNLABORED. NO SEIZURE ACTIVITY NOTED. SEE ADMIT ASSESSMENT FOR FULL ASSESSMENT.
--- NOTE | 2021-01-01 22:50 | NUR ---
AGITATION PT WITH INCREASED AGITATION AND RESTLESSNESS. ATTEMPTING TO CLIMB OUT OF BED AND PULLING ON RESTRAINTS AND CORDS. BILATERAL SOFT WRIST RESTRAINTS REMAIN ON. PT IS DIAPHORETIC. OPENS EYES AND LOOKS AT STAFF, BUT DOESN'T FOLLOW COMMANDS. NO VERBAL RESPONSE. CALL TO Raul BOWMAN NP- NEW ORDER RECEIVED FOR ATIVAN FOR AGITATION.
--- NOTE | 2021-01-02 04:50 | NUR ---
AGITATION/CALL TO MD DR. YODER NOTIFIED OF PT'S CONTINUED AGITATION DESPITE REPEATED DOSES OF ATIVAN. HR UP TO 150s WITH AGITATION. PT IS STILL IN 4 POINT RESTRAINTS. NEW ORDER RECEIVED FOR HALDOL IV X ONE DOSE.
--- NOTE | 2021-01-02 06:20 | NUR ---
SHIFT SUMMARY NO TONIC-CLONIC SEIZURE ACTIVITY NOTED DURING SHIFT. ONE EPISODE OF RIGHT HAND TREMORING NOTED AT 0140- MEDICATED WITH ATIVAN 2MG IV AT THAT TIME. ALSO MEDICATED WITH ATIVAN 2MG X 2 ADDITIONAL DOSES AND HALDOL 2.5MG IV X 1 DOSE FOR AGITATION. PT WITH INTERMITTENT AGITATION/RESTLESSNESS. SOFT RESTRAINTS X ALL 4 EXTREMITIES. PT DISROBING, PULLING AT IVs, AND ATTEMPTING TO CLIMB OUT OF BED WHEN RESTRAINTS OFF. WILL OPEN EYES SPONTANEOUSLY AND APPEARS TO TRACK STAFF, BUT NOT FOLLOWING ANY COMMANDS. APOLONIA, 4MM. INFREQUENT SOUNDS NOTED, NO OTHER VERBAL RESPONSE. INCONTINENT OF URINE- ATTENDS IN PLACE. NPO D/T ASPIRATION RISK. WILL REPORT TO ONCOMING RN WHEN AVAILABLE.
--- NOTE | 2021-01-02 06:40 | NUR ---
UPDATE STILL NO VERBAL RESPONSE FROM PATIENT, BUT PT DID SHAKE HER HEAD "NO" WHEN ASKED IF SHE KNEW WHERE SHE WAS. SQUEEZED HANDS TO COMMAND ONCE, BUT THEN DIDN'T FOLLOW ANY OTHER COMMANDS. REMAINS IN 4 POINT SOFT RESTRAINTS.
[2021-01-02 07:13] LABS: BASOPHILS ABSOLUTE AUTO 0.04 K/mm3 (0.00-0.23); BASOPHILS PERCENT AUTO 0 % (0-2); EOSINOPHILS ABSOLUTE AUTO 0.01 K/mm3 (0.00-0.68); EOSINOPHILS PERCENT AUTO 0 % (0-6); Hematocrit 38.1 % (33.0-51.0); Hemoglobin 13.2 g/dL (11.5-16.0); IMMATURE GRAN ABSOLUTE AUTO 0.05 K/mm3 (0.00-0.10); IMMATURE GRAN PERCENT AUTO 0 % (0-1); LYMPHOCYTES ABSOLUTE AUTO 3.16 K/mm3 (0.84-5.20); LYMPHOCYTES PERCENT AUTO 21 % (21-46); MONOCYTES ABSOLUTE AUTO 1.19 K/mm3 (0.16-1.47); MONOCYTES PERCENT AUTO 8 % (4-13); Mean Corpuscular HGB 29.8 pg (26.0-34.0); Mean Corpuscular HGB Conc 34.6 g/dL (31.5-36.5); Mean Platelet Volume 9.2 fL (9.1-12.4); NEUTROPHILS ABSOLUTE AUTO 10.31 K/mm3 (1.96-9.15); NEUTROPHILS PERCENT AUTO 70 % (41-73); Platelet Count 387 K/mm3 (150-400); Red Blood Cell Count 4.43 M/mm3 (3.80-5.20); White Blood Cell Count 14.76 K/mm3 (4.00-11.30)
[2021-01-02 07:27] LABS: Anion Gap 9 mmol/L (6-16); Blood Urea Nitrogen 8 mg/dL (8-24); Bun/Creatinine Ratio 13.3 (12.0-20.0); CO2, Blood 25 mmol/L (21-32); Calcium, Blood 9.2 mg/dL (8.5-10.1); Chloride, Blood 104 mmol/L (98-108); Glomerular Filtration Rate >60 (60-); Glucose, Blood 97 mg/dL (70-99); Magnesium, Blood 2.2 mg/dL (1.6-2.4); Potassium, Blood 3.1 mmol/L (3.5-5.5); Sodium, Blood 138 mmol/L (136-145)
[2021-01-02 07:30] LABS: Mean Corpuscular Volume 86 fL (80-100)
[2021-01-02 07:55] LABS: Source, Urine Catheter
[2021-01-02 08:00] LABS: Appearance, Urine Clear (Clear); Bilirubin, Urine Neg (Neg); Blood, Urine Neg (Neg); Color, Urine Yellow (P-Yellow); Glucose Qualitative, Urine Neg (Neg); Ketones, Urine 3+ (Neg); Leukocyte Esterase, Urine Neg (Neg); Nitrite, Urine Pos (Neg); Protein, Urine Neg (Neg); Specific Gravity, Urine 1.015 (1.003-1.022); Urobilinogen, Urine NORM (Normal)
--- NOTE | 2021-01-02 08:00 | NUR ---
PT VERY CONFUSED AND AGITATED. UNABLE TO FOLLOW COMMANDS. EYES OPEN, BUT NOT TRACKING. PT THRASHING IN BED AND PULLING ON 4 POINT RESTRAINTS. NO NOTED SEIZURE ACTIVITY. MED WITH ATIVAN 2 MG IVP @ [address] JOYCE CONTACTED AND PRECEDEX RICHA ORDERED-INITIATED @0751. TEMP 100.4. ECG SHOWS ST WITH RATE 120'S. LUNGS DIMINISHED IN THE BASES, BUT SATS>90% ON RA. NO NOTED SOB. NPO UNTIL PT AWAKE, ALERT, AND ABLE TO FOLLOW COMMANDS AND SWALLOW SAFELY. #16 FR [place] INSERTED AND UA SENT PER INSERTION PROTOCOL. NEW IV TO LEFT UPPER ARM PLACED WITH ULTRASOUND. WILL INITIATE NS@ 100 CC/HR.
[2021-01-02 08:23] LABS: Bacteria Mod /hpf; Red Blood Cells, Urine 0-2 /hpf (0-2); Squamous Epithelial Cells Few /hpf (Few)
--- NOTE | 2021-01-02 11:52 | NUR ---
PT OPENED EYES WHEN HER NAME CALLED AND MAKING EYE CONTACT. PT ASKS "WHAT HAPPENED?" EXPLAINED TO PT WHY SHE HAS BEEN ADMITTED TO THE ICU. PT NODDED IN AGREEMENT, BUT DRIFTED OFF TO SLEEP AFTER POSITON CHANGE COMPLETED. PRECEDEX DRIP @ 0.9 MCG/KG/MIN. PT RESTING INTERMITTENTLY WHEN NOT DISTURBED.
--- NOTE | 2021-01-02 16:00 | NUR ---
PT CONTINUES TO BE SEDATED ON PRECEDEX AND IN 4 POINT RESTRAINTS. BEHAVIOR DIFFICULT TO PREDICT. PT OPENED EYES WHEN RN CALLED HER NAME. PT MAKING EYE CONTACT AND ASKING "WHAT HAPPENED?" PT AGAIN REMINDED OF THE EVENTS THAT LEAD TO HER HOSPITALIZATION. PT DENIES EVER HAVING USED METH. NO SEIZURE ACTIVITY. VS STABLE.
--- NOTE | 2021-01-02 23:07 | NUR ---
ASSUMED PT CARE FROM TERESA GOODMAN AT 1915 PT SLEEPING IN BED. PRECEDEX AT 0.7 MCG/KG/HR. PT ABLE TO OPEN EYES TO VERBAL STIMULUS. FOLLOWS COMMANDS; HOWEVER, CONFUSED AND FORGETFUL TO EVENT, PLACE, AND TIME. RESTRAINTS REMOVED AT 1930 D/T PT NO LONGER ATTEMPTING TO GET OUT OF BED. NO SEIZURE LIKE ACTIVITY NOTED. [place] CATHETER IS PATENT AND DRAINING CLEAR YELLOW URINE TO GRAVITY. NS INFUSING AT 100MLS/HR. PT IS DIAPHORETIC WITH A LOW GRADE TEMP. WILL CONTINUE TO MONITOR. PT IS ABLE TO SHIFT OWN WEIGHT IN BED. CALL LIGHT IS WITHIN REACH.
[2021-01-03 04:16] LABS: BASOPHILS ABSOLUTE AUTO 0.03 K/mm3 (0.00-0.23); BASOPHILS PERCENT AUTO 0 % (0-2); EOSINOPHILS PERCENT AUTO 1 % (0-6); Hematocrit 33.7 % (33.0-51.0); Hemoglobin 11.7 g/dL (11.5-16.0); IMMATURE GRAN ABSOLUTE AUTO 0.02 K/mm3 (0.00-0.10); IMMATURE GRAN PERCENT AUTO 0 % (0-1); LYMPHOCYTES PERCENT AUTO 37 % (21-46); MONOCYTES ABSOLUTE AUTO 0.64 K/mm3 (0.16-1.47); MONOCYTES PERCENT AUTO 7 % (4-13); Mean Corpuscular HGB 30.2 pg (26.0-34.0); Mean Corpuscular HGB Conc 34.7 g/dL (31.5-36.5); Mean Corpuscular Volume 87 fL (80-100); Mean Platelet Volume 9.3 fL (9.1-12.4); NEUTROPHILS ABSOLUTE AUTO 4.95 K/mm3 (1.96-9.15); NEUTROPHILS PERCENT AUTO 55 % (41-73); Platelet Count 308 K/mm3 (150-400); RDW Coefficient Variation 12.5 % (11.7-14.2); RDW Standard Deviation 39.2 fL (35.1-46.3); Red Blood Cell Count 3.87 M/mm3 (3.80-5.20); White Blood Cell Count 9.04 K/mm3 (4.00-11.30)
[2021-01-03 04:35] LABS: Magnesium, Blood 2.1 mg/dL (1.6-2.4)
[2021-01-03 04:40] LABS: Alanine Aminotransfer (ALT/SGP 21 U/L (12-78); Albumin, Blood 2.9 g/dL (3.4-5.0); Albumin/Globulin Ratio 0.9 (0.8-1.8); Alk Phos 64 U/L (50-136); Anion Gap 8 mmol/L (6-16); Aspartate Aminotrans (AST/SGOT 25 U/L (12-37); Bilirubin, Total 0.4 mg/dL (0.1-1.0); Blood Urea Nitrogen 8 mg/dL (8-24); Bun/Creatinine Ratio 13.2 (12.0-20.0); CO2, Blood 21 mmol/L (21-32); Calcium, Blood 8.5 mg/dL (8.5-10.1); Chloride, Blood 114 mmol/L (98-108); Creatinine, Blood 0.61 mg/dL (0.40-1.00); Globulin, Blood 3.4 g/dL (2.2-4.0); Glomerular Filtration Rate >60 (60-); Glucose, Blood 89 mg/dL (70-99); Potassium, Blood 3.4 mmol/L (3.5-5.5); Sodium, Blood 143 mmol/L (136-145)
[2021-01-03 05:30] LABS: Total Protein, Blood 6.3 g/dL (6.4-8.2)
--- NOTE | 2021-01-03 06:32 | NUR ---
END OF SHIFT SUMMARY PRECEDEX TURNED OFF AT 0430. PT HAS REMAINED CALM AND COOPERATIVE. SLEPT THE ENTIRE SHIFT. ABLE TO REPOSITION SELF IN BED. BED ALARM REMAINS ON IN CASE PT BECOMES IMPULSIVE. NS INFUSING AT 100ML/HR. NO SEIZURE LIKE ACTIVITY NOTED. NSR WITH HR 80-90'S. BP'S STABLE, BUT TRENDING UPWARD SINCE PRECEDEX HAS BEEN TURNED OFF. PT STILL REMAINS CONFUSED AND FORGETFUL TO EVENT, PLACE, TIME/DATE. WILL CONTINUE TO MONITOR UNTIL REPORT IS HANDED OFF TO ONCOMING RN.
--- NOTE | 2021-01-03 08:00 | NUR ---
PT AWAKENED TO VOICE. PT WAS UNAWARE OF THE DATE AND TIME, BUT AWARE OF SURROUNDINGS AND EASILY ORIENTED WITH VERBAL PROMPTS. PT SAWYER-NO NEURO DEFICITS. NO SEIZURE ACTIVITY. PRECEDEX HAS BEEN OFF SINCE 429. TEMP 100.2. ECG CONTINUES ST 110-120'S. BP 148/101-WILL REQUEST RESUMPTION OF PT ROUTINE PO MEDS. LUNGS CLEAR-SATS>90% ON RA. NO GI DISTRESS OR DIFFICULTY SWALLOWING. WILL RESUME REGULAR DIET. AM CARE DONE, THEN PT ASSISTED OOB TO CHAIR WITH MINIMAL ASSISTANCE-TOLERATED WELL. PT REQUESTS PHONE TO CALL HER S/O. REQUEST GRANTED. ANTICIPATE POSSIBLE STATUS CHANGE LATER TODAY.
--- NOTE | 2021-01-03 09:45 | NUR ---
PT UTILIZED CALL SYSTEM TO [facility] RN TO ROOM. PT REQUESTS TO GET BACK TO BED. REQUEST GRANTED. MINIMAL ASSIST REQUIRED. PT POSITIONED HERSELF TO COMFORT ON LEFT SIDE.
--- NOTE | 2021-01-03 10:14 | NUR ---
HR 130'S AND SBP 190'S-MED WITH LABETOLOL 10 MG IVP X1-SEE EMAR.
--- NOTE | 2021-01-03 14:43 | NUR ---
PT GIVEN HOME MEDS PER DR. BERRIOS ORDER-SEE EMAR. HR TRENDING 110-120'S. PT REPORTS FEELING ANXIOUS. PT STATES THAT SHE DRINKS "ALOT" ON A DAILY BASIS. WILL EVALUATE CIWA.
--- NOTE | 2021-01-03 14:47 | NUR ---
CIWA 3. MED WITH ATIVAN SEE EMAR. WILL REASSESS AT 1500.
--- NOTE | 2021-01-03 15:25 | NUR ---
PT STATES THAT SHE IS STILL ANXIOUS-DESPITE MED WITH ATIVAN. MED WITH LIBRIUM 50 MG POX1.
--- NOTE | 2021-01-03 16:15 | NUR ---
PT UTILIZED CALL SYSTEM TO [facility] RN TO ROOM. PT DEMANDS TO "GO HOME!" PT AWARE THAT SHE WOULD VE LEAVIG AGAINST MEDICAL ADVICE. AMA FORM SIGNED BY PT. DR. BERRIOS AND NURSING PROJECT INSPECTOR NOTIFIED.
== END 2021-01-03 16:35 | disposition home or self-care (01) | DRG 897 ==
LOC: ER 15:07 → ICUW 15:08 → ERHOLD 15:08 → ICUW 19:54
PROVIDERS: Emergency Medicine; Nurse Practitioner Acute Care; ADMIT Internal Medicine
DX: F10.939 Alcohol use, unspecified with withdrawal, unspecified (principal); F31.89 Other bipolar disorder; N39.0 Urinary tract infection, site not specified; R56.9 Unspecified convulsions; F15.93 Other stimulant use, unspecified with withdrawal; I10 Essential (primary) hypertension; F12.93 Cannabis use, unspecified with withdrawal; G89.4 Chronic pain syndrome; M54.5 Low back pain; G43.909 Migraine, unspecified, not intractable, without status migrainosus; F44.81 Dissociative identity disorder; M79.7 Fibromyalgia; Z90.49 Acquired absence of other specified parts of digestive tract; Z90.710 Acquired absence of both cervix and uterus; Z98.890 Other specified postprocedural states; Z87.891 Personal history of nicotine dependence; Z88.1 Allergy status to other antibiotic agents; Z88.2 Allergy status to sulfonamides; Z88.6 Allergy status to analgesic agent; Z88.8 Allergy status to other drugs, medicaments and biological substances; Z79.899 Other long term (current) drug therapy; Z91.14 Patient's other noncompliance with medication regimen
CPT/HCPCS: 36415; 51701; 51702; 80048; 80053; 81001; 83735; 84443; 85025; 93005; 93010; 96361; 96365; 96367; 96372; 96375; 96376; 99285-25; A9270; C9113; G0378; J0696; J1630; J1650; J1953; J2060; J3480; J7030

== ENCOUNTER 2021-08-13 14:47 | Emergency (ER) | payer MEDICARE, OTHER ==
[~2021-08-13] VITALS: Ht 167.6 cm; Wt 86.2 kg
[~2021-08-13 14:47] MED LIST changes: +ARIP30 PO; +BUPROPION XL150 M1 PO; +LIDO700A20 TOP; +LOSARTAN POTAS100 M1 PO; +METO100ER PO; +MOBIC15 MG PO; +OMEPRAZOLE MAGN20 MG PO; +QUET300 PO; +RIZATRIPTAN10 MG
[2021-08-13] MEDS ORDERED: LEVE500 PO (19:48)
[2021-08-14] MEDS ORDERED: FLUTICASONE P15.8 M1 (03:27)
[2021-08-14] MEDS ORDERED: IBUP800 PO (03:27)
[2021-08-14] MEDS ORDERED: CHLO25B PO (03:30)
[2021-08-14] MEDS ORDERED: LAMO25 PO (03:33)
[2021-08-14] MEDS ORDERED: ONDA4ODT PO (03:34)
[2021-08-14] MEDS ORDERED: TRAM50 PO (03:36)
== END 2021-08-13 20:38 | disposition home or self-care (01) ==
LOC: ER 14:47
DX: R56.9 Unspecified convulsions (principal); S43.024A Posterior dislocation of right humerus, initial encounter; S42.291A Other displaced fracture of upper end of right humerus, initial encounter for closed fracture; G43.909 Migraine, unspecified, not intractable, without status migrainosus; Z88.6 Allergy status to analgesic agent; Z88.5 Allergy status to narcotic agent; Z88.2 Allergy status to sulfonamides; Z88.8 Allergy status to other drugs, medicaments and biological substances; Z79.899 Other long term (current) drug therapy; Z87.891 Personal history of nicotine dependence; X58.XXXA Exposure to other specified factors, initial encounter
CPT/HCPCS: 23650; 36415; 73030; 96365; 96375; 99284-25; J1953; J2060

== ENCOUNTER 2021-08-13 21:24 | Inpatient (IN) | payer MEDICARE, OTHER ==
[~2021-08-13] VITALS: Ht 157.5 cm; Wt 79.4 kg
[~2021-08-13 21:24] MED LIST changes: +LEVE500 PO
[2021-08-13 23:23] LABS: BASOPHILS ABSOLUTE AUTO 0.03 K/mm3 (0.00-0.23); BASOPHILS PERCENT AUTO 0 % (0-2); EOSINOPHILS PERCENT AUTO 0 % (0-6); Hematocrit 37.9 % (33.0-51.0); Hemoglobin 13.4 g/dL (11.5-16.0); IMMATURE GRAN ABSOLUTE AUTO 0.14 K/mm3 (0.00-0.10); IMMATURE GRAN PERCENT AUTO 1 % (0-1); LYMPHOCYTES ABSOLUTE AUTO 2.95 K/mm3 (0.84-5.20); LYMPHOCYTES PERCENT AUTO 15 % (21-46); MONOCYTES ABSOLUTE AUTO 1.19 K/mm3 (0.16-1.47); MONOCYTES PERCENT AUTO 6 % (4-13); Mean Corpuscular HGB 30.3 pg (26.0-34.0); Mean Corpuscular HGB Conc 35.4 g/dL (31.5-36.5); Mean Corpuscular Volume 86 fL (80-100); Mean Platelet Volume 9.6 fL (9.1-12.4); NEUTROPHILS ABSOLUTE AUTO 16.03 K/mm3 (1.96-9.15); NEUTROPHILS PERCENT AUTO 79 % (41-73); Platelet Count 502 K/mm3 (150-400); RDW Coefficient Variation 12.2 % (11.7-14.2); RDW Standard Deviation 38.4 fL (35.1-46.3); Red Blood Cell Count 4.42 M/mm3 (3.80-5.20); White Blood Cell Count 20.34 K/mm3 (4.00-11.30)
[2021-08-13 23:42] LABS: Albumin, Blood 3.7 g/dL (3.4-5.0); Albumin/Globulin Ratio 0.9 (0.8-1.8); Bilirubin, Total 0.4 mg/dL (0.1-1.0); Bun/Creatinine Ratio 15.7 (12.0-20.0); Calcium, Blood 9.9 mg/dL (8.5-10.1); Creatinine, Blood 0.96 mg/dL (0.40-1.00); Globulin, Blood 4.1 g/dL (2.2-4.0); Potassium, Blood 3.3 mmol/L (3.5-5.5); Total Protein, Blood 7.8 g/dL (6.4-8.2)
[2021-08-14 01:13] LABS: Source, Urine Clean Catch
[2021-08-14 01:16] LABS: Appearance, Urine Clear (Clear); Bilirubin, Urine Neg (Neg); Blood, Urine 1+ (Neg); Color, Urine Yellow (P-Yellow); Glucose Qualitative, Urine Neg (Neg); Ketones, Urine 2+ (Neg); Leukocyte Esterase, Urine 1+ (Neg); Nitrite, Urine Neg (Neg); Protein, Urine 2+ (Neg); Specific Gravity, Urine 1.015 (1.003-1.022); Urobilinogen, Urine NORM (Normal)
[2021-08-14 01:26] LABS: Red Blood Cells, Urine 0-2 /hpf (0-2)
[2021-08-14 01:27] LABS: Bacteria Mod /hpf; Squamous Epithelial Cells Not Seen /hpf (Few); WBC Cast 0-2 /lpf (0)
[2021-08-14 01:28] LABS: U Amphetamine Screen DETECTED; U Benzodiazapine Screen DETECTED; U Cannabinoids Screen DETECTED; U Methamphetamine Screen DETECTED
[2021-08-14 01:29] LABS: U Barbituate Screen Not Detected; U Buprenorphine Screen Not Detected; U Cocaine Screen Not Detected; U Methadone Screen Not Detected; U Opiates Screen Not Detected; U Oxycodone Screen Not Detected; U Phencyclidine Screen Not Detected; U Propoxyphene Screen Not Detected
[2021-08-14] MEDS ORDERED: IBUP800 PO (03:27)
[2021-08-14] MEDS ORDERED: FLUTICASONE P15.8 M1 (03:27)
[2021-08-14] MEDS ORDERED: CHLO25B PO (03:30)
[2021-08-14] MEDS ORDERED: LAMO25 PO (03:33)
[2021-08-14] MEDS ORDERED: ONDA4ODT PO (03:34)
[2021-08-14] MEDS ORDERED: TRAM50 PO (03:36)
--- NOTE | 2021-08-14 03:59 | NUR ---
WAS REVIEWING PT REGULATORY FOR TRANSFER TO MEDICAL FLOOR OBS STATUS BUT NOTED MD SAID 1 TO 1 MONITORING NEEDED. DISCUSSED WITH SYSTEMS ADMINTERESA Cazlada AURIAL & THEY DISCUSSED WITH [facility] YULIYA. PT NOT BEING ADMITTED TO ME GOING TO PCU WITH REMOTE CAMERA MONITORING. UNASSIGN PT WITHOUT ASSUMING CARE.
--- NOTE | 2021-08-14 05:44 | NUR ---
PHLEB UNABLE TO DRAW BLOOD DUE TO PT REFUSING. PT IS UNCOOPERATIVE WITH CARE. WILL MOVE LABS TO A LATER TIME.
--- NOTE | 2021-08-14 05:55 | NUR ---
SHIFT SUMMARY PT IS CONFUSED. PT IS UNCOOPERATIVE WITH CARE. THERE HAVE BEEN NO ACUTE CHANGES SINCE SHE CAME UP TO FLOOR. PT IS RESTLESS AND AGITATED, PAINFUL IN RIGHT SHOULDER AND ARM WELL PAIN WITH MOVEMENT AND TOUCH. REPORT FROM ED GIVEN OF RIGHT SHOULDER DISCLOCATION. PT WANTS IV REMOVED AND HAS PULLED ON IT AND ASKED FOR IT TO BE REMOVED. LR IS INFUSING AT THE MOMENT. BED ALARM IS ACTIVE. CALL LIGHT IS WITHIN REACH.
[2021-08-14 10:12] LABS: Hematocrit 37.1 % (33.0-51.0); Mean Corpuscular Volume 86 fL (80-100); Mean Platelet Volume 9.6 fL (9.1-12.4); Platelet Count 440 K/mm3 (150-400); RDW Standard Deviation 37.5 fL (35.1-46.3); Red Blood Cell Count 4.34 M/mm3 (3.80-5.20); White Blood Cell Count 15.44 K/mm3 (4.00-11.30)
[2021-08-14 10:29] LABS: Anion Gap 7 mmol/L (6-16); Blood Urea Nitrogen 15 mg/dL (8-24); Bun/Creatinine Ratio 15.8 (12.0-20.0); CO2, Blood 23 mmol/L (21-32); Calcium, Blood 9.7 mg/dL (8.5-10.1); Chloride, Blood 105 mmol/L (98-108); Creatinine, Blood 0.95 mg/dL (0.40-1.00); Glomerular Filtration Rate >60 (60-); Glucose, Blood 136 mg/dL (70-99); Potassium, Blood 2.9 mmol/L (3.5-5.5); Sodium, Blood 135 mmol/L (136-145)
[2021-08-14 10:55] LABS: Influenza A, PCR NEGATIVE (NEGATIVE); Influenza B, PCR NEGATIVE (NEGATIVE); Resp Syncytial Virus, PCR NEGATIVE (NEGATIVE); SARS-Cov-2 (COVID-19) PCR, MMC NEGATIVE (NEGATIVE)
--- NOTE | 2021-08-14 18:19 | NUR ---
Patient is alert and oriented x2, forgets where she is at and why she is here. EAsily reoriented. Cooporative but agitated. On bed rest, room air. Retainig urine, called and got order for mortensen cather @ 1136 from attending after bladder scanning 514cc. Negative CT of head. updated on plan of care @ 1030, and came to visit patient at bedside @ 1630. BSSR to be given to night time nurse.
[2021-08-15 03:37] LABS: BASOPHILS ABSOLUTE AUTO 0.05 K/mm3 (0.00-0.23); BASOPHILS PERCENT AUTO 0 % (0-2); EOSINOPHILS ABSOLUTE AUTO 0.03 K/mm3 (0.00-0.68); EOSINOPHILS PERCENT AUTO 0 % (0-6); Hematocrit 35.5 % (33.0-51.0); Hemoglobin 12.4 g/dL (11.5-16.0); IMMATURE GRAN ABSOLUTE AUTO 0.06 K/mm3 (0.00-0.10); IMMATURE GRAN PERCENT AUTO 0 % (0-1); LYMPHOCYTES ABSOLUTE AUTO 3.79 K/mm3 (0.84-5.20); LYMPHOCYTES PERCENT AUTO 27 % (21-46); MONOCYTES ABSOLUTE AUTO 1.29 K/mm3 (0.16-1.47); MONOCYTES PERCENT AUTO 9 % (4-13); Mean Corpuscular HGB 30.7 pg (26.0-34.0); Mean Corpuscular HGB Conc 34.9 g/dL (31.5-36.5); Mean Corpuscular Volume 88 fL (80-100); Mean Platelet Volume 9.4 fL (9.1-12.4); NEUTROPHILS ABSOLUTE AUTO 8.65 K/mm3 (1.96-9.15); NEUTROPHILS PERCENT AUTO 62 % (41-73); Platelet Count 345 K/mm3 (150-400); RDW Coefficient Variation 12.6 % (11.7-14.2); RDW Standard Deviation 40.7 fL (35.1-46.3); Red Blood Cell Count 4.04 M/mm3 (3.80-5.20); White Blood Cell Count 13.87 K/mm3 (4.00-11.30)
[2021-08-15 04:03] LABS: Albumin, Blood 2.9 g/dL (3.4-5.0); Albumin/Globulin Ratio 0.8 (0.8-1.8); Bilirubin, Total 0.6 mg/dL (0.1-1.0); Bun/Creatinine Ratio 12.5 (12.0-20.0); Calcium, Blood 9.3 mg/dL (8.5-10.1); Creatinine, Blood 1.2 mg/dL (0.40-1.00); Globulin, Blood 3.8 g/dL (2.2-4.0); Magnesium, Blood 2.2 mg/dL (1.6-2.4); Potassium, Blood 3.4 mmol/L (3.5-5.5); Total Protein, Blood 6.7 g/dL (6.4-8.2)
[2021-08-15 04:13] LABS: Thyroid Stimulating Hormone 1.59 uIU/mL (0.360-4.800)
--- NOTE | 2021-08-15 06:11 | NUR ---
SHIFT SUMMARY ASUMED CARE OF PT AT 1900. PT IS ALERT AND ORIENTED TO SELF AND FAMILY BUT FORGETFUL OF THE DATE AND TIME. PT STATES SHE DOESNT REMEMBER COMING INTO THE HOSPITAL, BUT SHE REMEBERS WHAT HER TOLD HER HAPPENED. HEART SOUNDS REGULAR, LUNG SOUNDS CLEAR. PT HAD A [place] DRAINING WITH GRAVITY. PT SLEPT T/O THE NIGHT. CALL LIGHT IN REACH, BED IN LOWEST POSTION, BED ALARM ON.
[2021-08-15] MEDS ORDERED: ACET325 PO (10:31)
[2021-08-15] MEDS ORDERED: LEVFLO500 PO (10:31)
[2021-08-15] MEDS ORDERED: VISBIOME 112.51 EACH PO (10:32)
[2021-08-15] MEDS ORDERED: FENTANYL1 EAC9 TOP (11:24)
[2021-08-15] MEDS ORDERED: OXYC5 PO (12:00)
== END 2021-08-15 12:17 | disposition home or self-care (01) | DRG 92 ==
LOC: ER 21:24 → MEDS 21:25 → PCU 21:25
PROVIDERS: Family Medicine; Physician Assistant; ADMIT Internal Medicine
DX: G92.8 Other toxic encephalopathy (principal); G40.89 Other seizures; Z20.822 Contact with and (suspected) exposure to COVID-19; F31.9 Bipolar disorder, unspecified; G43.909 Migraine, unspecified, not intractable, without status migrainosus; M54.50 Low back pain, unspecified; G89.29 Other chronic pain; M79.7 Fibromyalgia; S43.004A Unspecified dislocation of right shoulder joint, initial encounter; E87.6 Hypokalemia; F15.10 Other stimulant abuse, uncomplicated; Z87.891 Personal history of nicotine dependence; Z88.1 Allergy status to other antibiotic agents; Z88.2 Allergy status to sulfonamides; Z88.6 Allergy status to analgesic agent; Z88.8 Allergy status to other drugs, medicaments and biological substances; Z90.49 Acquired absence of other specified parts of digestive tract; Z90.710 Acquired absence of both cervix and uterus; Z98.890 Other specified postprocedural states
CPT/HCPCS: 0241U; 36415; 51702; 70450; 80048; 80053; 81001; 82140; 83735; 84443; 85025; 85027; 87086; 93005; 93010; 96372; 96374; 99285-25; A9270; G0378; J1650; J1956; J2060; J7120

== ENCOUNTER 2021-11-11 11:14 | Inpatient (IN) | payer MEDICARE, OTHER ==
[~2021-11-11] VITALS: Ht 160 cm; Wt 82.0 kg
[~2021-11-11 11:14] MED LIST changes: +ACET325 PO; +ALBU8HFA2 INH; +CHLO25B PO; +FENTANYL1 EAC9 TOP; +FLUTICASONE P15.8 M1; +HYDR1TAB94 PO; +LAMO25 PO; +MAXALT10 MG PO; +ONDA4ODT PO; +OXYC5 PO; +TRAM50 PO; +VISBIOME 112.51 EACH PO
--- NOTE | 2021-11-11 16:24 | NUR ---
11/11/21 3374 [address] Crystal REMOVED AND PUT ASIDE FOR CLEANING. TO BE SENT TO PT. NO SPECIMENS PER MD. PT TO PACU WITH ULTRA SLING.
--- NOTE | 2021-11-11 17:55 | NUR ---
1630 PT ARRIVED TO ROOM AND REPORTS LEFT EYE FEELS LIKE IT WAS SCRATCHED OR LIKE IT HAS AN EYELASH OR HAIR IN IT. NO REDNESS NOTED, NO VISIBLE FOREIGN BODY SEEN IN EYE. PT GIVEN COOL WASHCLOTH PER REQUEST. CONTACTED MACI CISNEROS AND OPTHAMOLOGY CONSULT ORDERED. SPOKE WITH PATIENT REGARDING CONSULT AND PT DECLINES CONSULT- STATES SHE WOULD LIKE TO SEE HOW HER EYE FEELS IN THE MORNING
--- NOTE | 2021-11-11 17:59 | NUR ---
SUMMARY PT REPORTS SLIGHT TINGLING TO RIGHT THUMB BUT STATES NUMBNESS TO THE REST OF RIGHT ARM. PT REPORTS SHE HAS NO PAIN. AQUACEL CLEAN. DRY AND INTACT TO RIGHT SHOULDER. PT DENIES NAUSEA AT THIS TIME. PT HAS NOT BEEN OOB OR VOIDED SINCE ARIVED IN ROOM
[2021-11-12 04:10] LABS: BASOPHILS ABSOLUTE AUTO 0.01 K/mm3 (0.00-0.23); BASOPHILS PERCENT AUTO 0 % (0-2); EOSINOPHILS PERCENT AUTO 0 % (0-6); Hematocrit 31.7 % (33.0-51.0); Hemoglobin 10.3 g/dL (11.5-16.0); IMMATURE GRAN ABSOLUTE AUTO 0.07 K/mm3 (0.00-0.10); IMMATURE GRAN PERCENT AUTO 1 % (0-1); LYMPHOCYTES ABSOLUTE AUTO 1.65 K/mm3 (0.84-5.20); LYMPHOCYTES PERCENT AUTO 14 % (21-46); MONOCYTES ABSOLUTE AUTO 0.58 K/mm3 (0.16-1.47); MONOCYTES PERCENT AUTO 5 % (4-13); Mean Corpuscular HGB 27.5 pg (26.0-34.0); Mean Corpuscular HGB Conc 32.5 g/dL (31.5-36.5); Mean Corpuscular Volume 85 fL (80-100); Mean Platelet Volume 9.4 fL (9.1-12.4); NEUTROPHILS ABSOLUTE AUTO 9.84 K/mm3 (1.96-9.15); NEUTROPHILS PERCENT AUTO 81 % (41-73); Platelet Count 349 K/mm3 (150-400); RDW Coefficient Variation 12.7 % (11.7-14.2); RDW Standard Deviation 38.8 fL (35.1-46.3); Red Blood Cell Count 3.74 M/mm3 (3.80-5.20); White Blood Cell Count 12.15 K/mm3 (4.00-11.30)
[2021-11-12 04:31] LABS: Anion Gap 10 mmol/L (6-16); Blood Urea Nitrogen 9 mg/dL (8-24); CO2, Blood 24 mmol/L (21-32); Calcium, Blood 8.8 mg/dL (8.5-10.1); Chloride, Blood 103 mmol/L (98-108); Creatinine, Blood 0.64 mg/dL (0.40-1.00); Glomerular Filtration Rate >60 (60-); Glucose, Blood 132 mg/dL (70-99); Potassium, Blood 3.2 mmol/L (3.5-5.5); Sodium, Blood 137 mmol/L (136-145)
--- NOTE | 2021-11-12 07:31 | NUR ---
PT REPORTS LEFT EYE FEELS LIKE HAS AN EYELASH OR HAIR IN IT BUT STATES FEELS MUCH BETTER THAN IT DID LAST NITE, NO REDNESS OR FOREIGN OBJECTS SEEN IN EYE
[2021-11-12] MEDS ORDERED: ASPI81CH PO (09:41)
--- NOTE | 2021-11-12 09:50 | NUR ---
DISCHARGE INSTRUCTIONS REVIEWED WITH PATIENT. PT VERBALIZES UNDERSTANDING OF MEDS, INCISION CARE, ACTIVITY, PAIN MANAGEMENT AND FOLLOW UP. PT SANDRA PO FOOD AND FLUIDS, REPORTS PAIN IS ADEQUATELY CONTROLLED WITH PO MEDS. INSTRUCTED ON USE OF POLAR ANNETTE. PT AWAITING PT PRIOR TO DISCHARGE
--- NOTE | 2021-11-12 11:05 | NUR ---
DISCHARGED TO HOME, PT IN AGREEMENT WITH PLAN TO DISCHARGE
== END 2021-11-12 11:07 | disposition home or self-care (01) | DRG 483 ==
LOC: SURS 11:14 → BC 12:30 → SURS 16:28
PROVIDERS: ADMIT Orthopaedic Surgery
PROC: 0RRK00Z Replacement of Left Shoulder Joint with Reverse Ball and Socket Synthetic Substitute, Open Approach (ICD-10-PCS; principal; 2021-11-11 12:30)
PROC: 0PPC04Z Removal of Internal Fixation Device from Right Humeral Head, Open Approach (ICD-10-PCS; 2021-11-11 12:30)
DX: T84.190A Other mechanical complication of internal fixation device of right humerus, initial encounter (principal); Z87.891 Personal history of nicotine dependence; F41.9 Anxiety disorder, unspecified; F31.9 Bipolar disorder, unspecified; M79.7 Fibromyalgia; E78.5 Hyperlipidemia, unspecified; G40.909 Epilepsy, unspecified, not intractable, without status epilepticus; Z90.49 Acquired absence of other specified parts of digestive tract; Z98.890 Other specified postprocedural states; Z90.710 Acquired absence of both cervix and uterus; Z79.899 Other long term (current) drug therapy; Z88.2 Allergy status to sulfonamides; Z88.1 Allergy status to other antibiotic agents; Z88.8 Allergy status to other drugs, medicaments and biological substances
CPT/HCPCS: 36415; 73030; 80048; 85025; 94760; 97110; 97161; 97166; 97530; 97535; A9270; C1776; J0171; J0690; J0735; J1100; J1885; J2250; J2370; J2405; J2704; J2795; J3010; J7120

== ENCOUNTER 2022-03-29 09:02 | Day surgery (SDC) | payer MEDICARE, OTHER ==
[~2022-03-29] VITALS: Ht 160 cm; Wt 83.3 kg
[~2022-03-29 09:02] MED LIST changes: +ASPI81CH PO; +ESTRADIOL42.5 GM VAG; +Keppra750 MG PO; +Voltaren100 GM TOP
[2022-03-29] MEDS ORDERED: HYDHCL25 (10:03)
== END 2022-03-29 12:00 | disposition home or self-care (01) ==
LOC: ORSCSDS 09:02
PROVIDERS: Surgery
PROC: 0DB78ZX Excision of Stomach, Pylorus, Via Natural or Artificial Opening Endoscopic, Diagnostic (ICD-10-PCS; principal; 2022-03-29 10:15)
PROC: 0DBP8ZX Excision of Rectum, Via Natural or Artificial Opening Endoscopic, Diagnostic (ICD-10-PCS; principal; 2022-03-29 10:15)
DX: K62.5 Hemorrhage of anus and rectum (principal); Z86.010 Personal history of colon polyps; R19.4 Change in bowel habit; K62.1 Rectal polyp; K29.70 Gastritis, unspecified, without bleeding; R10.30 Lower abdominal pain, unspecified; R11.0 Nausea; R14.0 Abdominal distension (gaseous); F31.9 Bipolar disorder, unspecified; F41.9 Anxiety disorder, unspecified; E78.5 Hyperlipidemia, unspecified; I10 Essential (primary) hypertension; M79.7 Fibromyalgia; F43.10 Post-traumatic stress disorder, unspecified; G40.909 Epilepsy, unspecified, not intractable, without status epilepticus; Z85.41 Personal history of malignant neoplasm of cervix uteri; Z79.899 Other long term (current) drug therapy; Z79.82 Long term (current) use of aspirin; Z87.891 Personal history of nicotine dependence
CPT/HCPCS: 88305; 88342; J2704; J7120

== ENCOUNTER 2023-05-03 05:13 | Emergency (ER) | payer MEDICARE, OTHER ==
[~2023-05-03] VITALS: Ht 160 cm; Wt 79.4 kg
[~2023-05-03 05:13] MED LIST changes: +AMOCLA875 PO; +Compro25 MG PR; +HYDHCL25; +LOSA50 PO; +POTCHL20ER PO; +PROMETHAZINE12.5 M1 PO
[2023-05-03 06:28] LABS: BASOPHILS ABSOLUTE AUTO 0.05 K/mm3 (0.00-0.23); BASOPHILS PERCENT AUTO 1 % (0-2); EOSINOPHILS ABSOLUTE AUTO 0.23 K/mm3 (0.00-0.68); EOSINOPHILS PERCENT AUTO 2 % (0-6); Hematocrit 40.1 % (33.0-51.0); Hemoglobin 13.8 g/dL (11.5-16.0); IMMATURE GRAN ABSOLUTE AUTO 0.05 K/mm3 (0.00-0.10); IMMATURE GRAN PERCENT AUTO 1 % (0-1); LYMPHOCYTES ABSOLUTE AUTO 4.05 K/mm3 (0.84-5.20); LYMPHOCYTES PERCENT AUTO 42 % (21-46); MONOCYTES ABSOLUTE AUTO 0.43 K/mm3 (0.16-1.47); MONOCYTES PERCENT AUTO 5 % (4-13); Mean Corpuscular HGB 31.8 pg (26.0-34.0); Mean Corpuscular HGB Conc 34.4 g/dL (31.5-36.5); Mean Corpuscular Volume 92 fL (80-100); Mean Platelet Volume 9.8 fL (9.1-12.4); NEUTROPHILS PERCENT AUTO 50 % (41-73); Platelet Count 337 K/mm3 (150-400); RDW Coefficient Variation 11.8 % (11.7-14.2); RDW Standard Deviation 39.7 fL (35.1-46.3); Red Blood Cell Count 4.34 M/mm3 (3.80-5.20); White Blood Cell Count 9.61 K/mm3 (4.00-11.30)
[2023-05-03] MEDS ORDERED: Keppra750 MG PO (06:35)
[2023-05-03] MEDS ORDERED: PANTOPRAZOLE SO40 M2 PO (06:35)
[2023-05-03] MEDS ORDERED: Bentyl20 MG PO (06:36)
[2023-05-03] MEDS ORDERED: PREGABALIN25 MG PO (06:37)
[2023-05-03] MEDS ORDERED: LAMOTRIGINE25 M4 PO (06:39)
[2023-05-03] MEDS ORDERED: LOSA50 PO (06:41)
[2023-05-03 06:46] LABS: Albumin, Blood 3.7 g/dL (3.4-5.0); Bilirubin, Total 0.2 mg/dL (0.1-1.0); Bun/Creatinine Ratio 11.3 (12.0-20.0); Creatinine, Blood 0.8 mg/dL (0.40-1.00); Globulin, Blood 3.8 g/dL (2.2-4.0); Potassium, Blood 3.7 mmol/L (3.5-5.5); Total Protein, Blood 7.5 g/dL (6.4-8.2)
[2023-05-03 07:51] LABS: Source, Urine Clean Catch
[2023-05-03] MEDS ORDERED: CARAFATE1 GM/10 M1 PO (07:54)
[2023-05-03 07:56] LABS: Appearance, Urine Clear (Clear); Bilirubin, Urine Neg (Neg); Blood, Urine 1+ (Neg); Color, Urine Yellow (P-Yellow); Glucose Qualitative, Urine Neg (Neg); Ketones, Urine Neg (Neg); Leukocyte Esterase, Urine Neg (Neg); Nitrite, Urine Neg (Neg); Protein, Urine 1+ (Neg); Specific Gravity, Urine 1.005 (1.003-1.022); Urobilinogen, Urine NORM (Normal)
[2023-05-03 08:00] VITALS: BP 145/99
[2023-05-03 08:19] LABS: Squamous Epithelial Cells Mod /hpf (Few)
[2023-05-03 08:20] LABS: Bacteria Not Seen /hpf; Uric Acid Crystals Few /hpf; White Blood Cells, Urine Not Seen /hpf (0-5)
== END 2023-05-03 08:09 | disposition home or self-care (01) ==
LOC: ER 05:13
PROVIDERS: Emergency Medicine
DX: K29.90 Gastroduodenitis, unspecified, without bleeding (principal); G40.909 Epilepsy, unspecified, not intractable, without status epilepticus; Z88.6 Allergy status to analgesic agent; Z88.1 Allergy status to other antibiotic agents; Z88.2 Allergy status to sulfonamides; Z88.8 Allergy status to other drugs, medicaments and biological substances; Z88.5 Allergy status to narcotic agent; Z79.82 Long term (current) use of aspirin; Z79.899 Other long term (current) drug therapy
CPT/HCPCS: 74177; 80053; 81001; 83690; 85025; 93005; 93010; 96361; 96374-59; 96375; 99284-25; J0780; J1170; J7030; Q9967